=== PATIENT | female | born 1940 | race Caucasian/White ===

== ENCOUNTER 2019-03-10 06:00 | Outpatient (RCR) | payer MEDICARE, OTHER, SELFPAY | END 2019-04-09 00:01 | LOC: SPT 06:00 | PROVIDERS: Family Provider Physician Assistant; Visit Provider Physician Assistant | DX: M54.2 Cervicalgia (principal) | CPT/HCPCS: 97110 ×3 ==

== ENCOUNTER 2019-04-10 06:00 | Outpatient (RCR) | payer MEDICARE, OTHER, SELFPAY | END 2019-05-10 23:59 | disposition home or self-care (01) | LOC: SPT 06:00 | PROVIDERS: Family Provider Physician Assistant; PCP Physician Assistant; Visit Provider Physician Assistant | DX: M54.2 Cervicalgia (principal) | CPT/HCPCS: 97164 ==

== ENCOUNTER 2019-08-20 16:59 | Emergency (ER) | payer MEDICARE, OTHER, SELFPAY ==
[2019-08-20] VITALS (21 sets, daily range): BP systolic 104–145; BP diastolic 64–87; PULSE 75–104; RESP 16–18; TEMP 36.9; O2SAT 95–99; BMI 24.1
--- NOTE | 2019-08-20 17:34 | W.ED.DIZZY ---
Documented by User: Roger Queen DO 08/21/19 06:04 HPI - Dizziness General: Chief Complaint: Dizziness Stated Complaint: DIZZINESS, SWEATS, FAINTING Time Seen by Provider: 08/20/19 17:15 History of Present Illness: HPI Narrative: 78-year-old female comes in complaining of dizziness weakness nausea for the last week. She is had a mild cough as well. She has had fever sweats and chills although the fever has been subjective. This morning she had a near syncopal episode while walking to the bathroom. She denies any chest pain with any of these episodes. Yesterday she went to her primary care doctor's office she was found to have a cystitis and started on an antibiotic. In addition to that she was swabbed for COVID-19 that test is still pending at this time. She denies any vomiting or diarrhea she denies any abdominal pain. She denies any lateralizing weakness difficulty with vision speech or swallowing. Associated symptoms: Reports chills, malaise and nausea; Denies chest pain, headache(s), nasal congestion, palpitations, syncope or vomiting Associated neuro symptoms: Deny confusion, dysphagia or numbness in extremities Review of Systems Const: Reports: fever(s), chills, fatigue and malaise; Denies: body aches or night sweats Eyes: Denies: change in vision or blurry vision ENMT: Denies: throat pain, oral sores, dental pain, nasal discharge or nasal congestion Card: Denies: chest pain, palpitations, irregular heart rhythm, edema, syncope, dyspnea on exertion, orthopnea or leg pain with exertion Resp: Reports: dyspnea and non-productive cough; Denies: productive cough or wheezing GI: Reports: nausea; Denies: abdominal pain, vomiting, hematemesis, coffee ground emesis, dysphagia, heartburn, diarrhea, constipation, GI cramping, hematochezia or melena : Denies: flank pain, dysuria, urinary frequency, urinary urgency, urinary incontinence or hematuria Musc: Denies: neck pain, back pain, extremity pain, extremity swelling, joint pain or joint swelling Skin/Breast: Denies: rash, pruritus or erythema Neuro: Denies: headache(s), numbness in extremities, weakness in extremities, sensory changes, lack of coordination, difficulty walking, frequent falls, dizziness, vertigo or confusion Psych: Denies: anxiety, depression, loss of interest, visual hallucinations, auditory hallucinations, suicidal ideation or homicidal ideation Endo: Denies: polyuria, polydipsia, tired all the time or cold intolerance Carlos/Lymph: Denies: easy bruising, easy bleeding, petechiae, enlarged lymph nodes or tender lymph nodes PFSH ED PFSH: Medical History Qriyn-2-ylxbdnlkqji deficiency Chronic GERD Cystocele, midline Patient with third-degree cystocele with Valsalva. Using a size 6 ring with support pessary with knob DDD (degenerative disc disease) Fibromyalgia syndrome Osteoarthritis Peripheral neuropathy Pessary maintenance Uterovaginal prolapse, incomplete Uterus comes to the opening of the vaginal introitus with Valsalva Surgical History S/P breast augmentation (~1991) S/P cholecystectomy (~2014) S/P mastectomy, bilateral 1981- Cystic breasts-- benign S/P total knee replacement (~07/04/17) S/P tubal ligation (~1978) Family History Family/Other Colon cancer nephew Breast cancer maternal aunt Brother Lung cancer Hyperlipidemia Mother Lung cancer Family/Other Uterine cancer maternal aunt Sister Hyperlipidemia Family/Other No problems noted. Social History Smoking and tobacco status: never smoked Alcohol intake: never Additional social history: well balanced diet Physical Exam Const: COMMON NORMALS: no acute distress GENERAL APPEARANCE: cooperative and comfortable ORIENTATION/CONSCIOUSNESS: Yes awake, Yes oriented to person, Yes oriented to place and Yes oriented to time HENMT: COMMON NORMALS: normocephalic, atraumatic, hearing grossly normal bilaterally, external ears normal, EAC's normal, TM's normal bilaterally, Normal nasal mucous membranes and turbinates present, moist oral mucous membranes and oropharynx normal HEAD & SCALP: normocephalic and atraumatic NOSE: Normal nasal mucous membranes and turbinates present EXTERNAL EAR: Yes external ears normal EXTERNAL AUDITORY CANAL: EAC's normal TYMPANIC MEMBRANE: TM's normal bilaterally Eye: COMMON NORMALS: Equal, round and reactive pupils present, EOMs intact bilaterally, conjunctivae normal and no scleral icterus CONJUNCTIVA: Yes conjunctivae normal PUPIL: Yes Equal, round and reactive pupils present Neck/C-Spine: COMMON NORMALS: full ROM, no lymphadenopathy, supple and no JVD Lymph: LYMPHATIC: no lymphadenopathy noted and no lymphedema noted Resp: COMMON NORMALS: normal respiratory effort, No retractions, No use of accessory muscles and clear to auscultation bilaterally AUSCULTATION: clear to auscultation bilaterally Cardio: COMMON NORMALS: no JVD, regular rate, regular rhythm and No murmurs present (Cardio) RATE: regular rate RHYTHM: regular rhythm GI: COMMON NORMALS: Soft to palpation and No hepatosplenomegaly present AUSCULTATION: Yes normoactive bowel sounds PALPATION: Yes Soft to palpation, No Tenderness to palpation present (GI), No Guarding due to palpation present (GI) and Yes No hepatosplenomegaly present Extremity: COMMON NORMALS: normal to inspection, capillary refill normal, no clubbing, cyanosis or edema, no calf tenderness and no pedal edema Neuro: SENSORIUM/ORIENTATION: Yes oriented to person, Yes oriented to place and Yes oriented to time Skin: COMMON NORMALS: no rashes or lesions noted GENERAL SKIN EXAM: no rashes or lesions noted Course Vital Signs: Vital signs: Vital Signs Temperature 98.4 F 08/20/19 17:09 Pulse Rate 76 08/20/19 20:50 Respiratory Rate 16 08/20/19 20:50 Blood Pressure 132/87 08/20/19 20:50 Pulse Oximetry 96 08/20/19 20:50 MDM - Dizziness MDM Narrative: Medical decision making narrative: Care turned over to Dr. Godinez at change of shift. See his notes for assessment and final disposition Lab Data: Labs: Lab Results 08/20/19 08/20/19 Range/Units 17:20 17:20 WBC 7.6 (4.0-10.0) 10^3/ uL RBC 5.32 H (4.1-5.3) 10^6/u L Hgb 15.1 (11.5-15.3) g/dL Hct 47.0 (37.0-47.0) % MCV 88.3 (81-99) fL MCH 28.4 (28.0-34.0) pg MCHC 32.1 (30.0-36.0) g/dL RDW 13.3 (12.1-15.1) % Plt Count 340 (130-400) 10^3/c mm MPV 9.7 (7.4-10.4) fL Neut % (Auto) 71.6 % Lymph % (Auto) 18.2 % [place] % (Auto) 4.7 % Eos % (Auto) 5.1 % Baso % (Auto) 0.3 % Neut # (Auto) 5.4 (1.8-7.7) 10^3/u L Lymph # (Auto) 1.4 (0.8-4.8) 10^3/u L [place] # (Auto) 0.4 (0.2-0.9) 10^3/u L Eos # (Auto) 0.4 (0.0-0.8) 10^3/u L Baso # (Auto) 0.0 (0.0-0.1) 10^3/u L Nucleated RBC % (a uto) 0 % Nucleated RBCs # 0.0 /100WBC Sodium 139 (136-145) mmol/L Potassium 3.8 (3.5-5.1) mmol/L Chloride 100 (98-107) mmol/L Carbon Dioxide 26 (22-29) mmol/L Anion Gap 16.8 (5-19) BUN 16 (8-23) mg/dL Creatinine 0.9 (0.5-0.9) mg/dL Glucose 114 (65-115) mg/dL Calculated Osmolal ity 285 (285-295) mOsm/k g Calcium 9.4 (8.5-10.5) mg/dL Total Bilirubin 1.0 (0.15-1.2) mg/dL AST 16 (0-32) U/L ALT 10 (0-33) U/L Alkaline Phosphata se 69 (35-105) IU/L Total Protein 6.6 (6.6-8.7) g/dL Albumin 4.2 (3.5-5.2) g/dL Globulin 2.4 (1.3-4.6) g/dL Lipase 35 (13-60) U/L Discharge Plan Discharge Patient Disposition: Home, Self-Care Clinical Impression: Generalized weakness, Acute upper respiratory infection, Cystitis Condition: Stable Prescriptions: New Keflex 500 mg capsule 500 mg PO Q6H 7 Days Qty: 28 RF: 0 No Action Premarin 0.625 mg/gram cream 0.3125 mg VAGINAL .twice weekly Qty: 30 RF: 6 Trimo-Gonzalez Jelly 0.025-0.01 % gel VAGINAL PRNRF: 0 gabapentin PO BID RF: 0 albuterol sulfate [ProAir HFA] 90 mcg/actuation HFA aerosol inhaler 2 puff INHALATION Q6H PRNRF: 0 cetirizine 10 mg capsule PO DAILY RF: 0 acetaminophen [Tylenol] 325 mg tablet 325 mg PO Q6H PRNRF: 0 multivitamin Tablet 1 tab PO QDAY RF: 0 duloxetine [Cymbalta] 60 mg capsule,delayed release(DR/EC) 60 mg PO QDAY RF: 0 Discharge Orders: Discharge Order (Routine); Ordered 08/20/19 Ordered By: Pedro Godinez Referrals: Jaclyn Holloway PA [Primary Care Provider] - 1-3 days Discharge Diet: Advance as tolerated Discharge Activity: Resume usual activity Patient Instructions: Upper Respiratory Infection (ED), Weakness (ED) Interventions: ED Discharge Assessment Last Done: 08/20/19 20:50 ED Charges Last Done: 08/20/19 20:50 Discharge Date/Time: 08/20/19 20:43 Coding Level of Care Code ED Dental Ceramist for Chg Fwd Documented by User: Pedro Godinez MD 08/20/19 20:48 HPI - Dizziness General: Chief Complaint: Dizziness Stated Complaint: DIZZINESS, SWEATS, FAINTING Time Seen by Provider: 08/20/19 17:15 PFSH ED PFSH: Medical History Jprls-0-hiykfadnemc deficiency Chronic GERD Cystocele, midline Patient with third-degree cystocele with Valsalva. Using a size 6 ring with support pessary with knob DDD (degenerative disc disease) Fibromyalgia syndrome Osteoarthritis Peripheral neuropathy Pessary maintenance Uterovaginal prolapse, incomplete Uterus comes to the opening of the vaginal introitus with Valsalva Surgical History S/P breast augmentation (~1991) S/P cholecystectomy (~2014) S/P mastectomy, bilateral 1981- Cystic breasts-- benign S/P total knee replacement (~07/04/17) S/P tubal ligation (~1978) Family History Family/Other Colon cancer nephew Breast cancer maternal aunt Brother Lung cancer Hyperlipidemia Mother Lung cancer Family/Other Uterine cancer maternal aunt Sister Hyperlipidemia Family/Other No problems noted. Social History Smoking and tobacco status: never smoked Alcohol intake: never Additional social history: well balanced diet Course Vital Signs: Vital signs: Vital Signs Temperature 98.4 F 08/20/19 17:09 Pulse Rate 76 08/20/19 20:50 Respiratory Rate 16 08/20/19 20:50 Blood Pressure 132/87 08/20/19 20:50 Pulse Oximetry 96 08/20/19 20:50 MDM - Dizziness MDM Narrative: Medical decision making narrative: Patient presents here with generalized weakness along with cough and congestion. Patient was on antibiotics states she has had allergic reactions we will switch it to Keflex. Patient is well-appearing here and vitals including orthostatics are normal. Patient is stable for discharge and return if worsening. Lab Data: Labs: Lab Results 08/20/19 08/20/19 Range/Units 17:20 17:20 WBC 7.6 (4.0-10.0) 10^3/ uL RBC 5.32 H (4.1-5.3) 10^6/u L Hgb 15.1 (11.5-15.3) g/dL Hct 47.0 (37.0-47.0) % MCV 88.3 (81-99) fL MCH 28.4 (28.0-34.0) pg MCHC 32.1 (30.0-36.0) g/dL RDW 13.3 (12.1-15.1) % Plt Count 340 (130-400) 10^3/c mm MPV 9.7 (7.4-10.4) fL Neut % (Auto) 71.6 % Lymph % (Auto) 18.2 % [place] % (Auto) 4.7 % Eos % (Auto) 5.1 % Baso % (Auto) 0.3 % Neut # (Auto) 5.4 (1.8-7.7) 10^3/u L Lymph # (Auto) 1.4 (0.8-4.8) 10^3/u L [place] # (Auto) 0.4 (0.2-0.9) 10^3/u L Eos # (Auto) 0.4 (0.0-0.8) 10^3/u L Baso # (Auto) 0.0 (0.0-0.1) 10^3/u L Nucleated RBC % (a uto) 0 % Nucleated RBCs # 0.0 /100WBC Sodium 139 (136-145) mmol/L Potassium 3.8 (3.5-5.1) mmol/L Chloride 100 (98-107) mmol/L Carbon Dioxide 26 (22-29) mmol/L Anion Gap 16.8 (5-19) BUN 16 (8-23) mg/dL Creatinine 0.9 (0.5-0.9) mg/dL Glucose 114 (65-115) mg/dL Calculated Osmolal ity 285 (285-295) mOsm/k g Calcium 9.4 (8.5-10.5) mg/dL Total Bilirubin 1.0 (0.15-1.2) mg/dL AST 16 (0-32) U/L ALT 10 (0-33) U/L Alkaline Phosphata se 69 (35-105) IU/L Total Protein 6.6 (6.6-8.7) g/dL Albumin 4.2 (3.5-5.2) g/dL Globulin 2.4 (1.3-4.6) g/dL Lipase 35 (13-60) U/L Imaging Data^: CXR: Attestation: I personally reviewed and interpreted this imaging study as follows: Radiologist's impression: [address] [address] XRay Report Signed Patient: Elizabeth Anne Unit #: [id number] : 1940 Age/Sex: 78 / F ADM Date: 08/20/19 Loc: ER Room/Bed: Attending Dr: Ordering Provider/Ordering MD: Roger Queen DO Date of Service: 08/20/19 Procedure(s): XR chest 1V portable [id number] Accession Number(s): [id number] Report Number: [id number] PROCEDURE INFORMATION: Exam: XR Chest, 1 View Exam date and time: 08/20/2019 6:10 PM Age: 78 years old Clinical indication: Cough and shortness of breath; Additional info: Dyspnea/cough TECHNIQUE: Imaging protocol: XR of the chest Views: 1 view. COMPARISON: CR Chest 2 views* [id number] 06/30/2017 11:20 AM FINDINGS: Overlying breast implants limit evaluation. Lung volumes are somewhat low. Otherwise no focal pulmonary consolidation is demonstrated on this single frontal image. No significant obscuration of the lateral costophrenic angles is demonstrated. No significant vascular congestion is demonstrated. Visualized cardiac silhouette size appears within normal limits. XR/XR chest 1V portable [id number] IMPRESSION: No definite acute pulmonary process is demonstrated. EKG Data^: EKG 1: Attestation: I personally reviewed and interpreted this EKG as follows: EKG interpretation date: 08/20/19 EKG interpretation time: 19:34 Interpretation: nsr hr [address] or t wave abnormalities qrs 87 qtc 413 Discharge Plan Discharge Patient Disposition: Home, Self-Care Clinical Impression: Generalized weakness, Acute upper respiratory infection, Cystitis Condition: Stable Prescriptions: New Keflex 500 mg capsule 500 mg PO Q6H 7 Days Qty: 28 RF: 0 No Action Premarin 0.625 mg/gram cream 0.3125 mg VAGINAL .twice weekly Qty: 30 RF: 6 Trimo-Gonzalez Jelly 0.025-0.01 % gel VAGINAL PRNRF: 0 gabapentin PO BID RF: 0 albuterol sulfate [ProAir HFA] 90 mcg/actuation HFA aerosol inhaler 2 puff INHALATION Q6H PRNRF: 0 cetirizine 10 mg capsule PO DAILY RF: 0 acetaminophen [Tylenol] 325 mg tablet 325 mg PO Q6H PRNRF: 0 multivitamin Tablet 1 tab PO QDAY RF: 0 duloxetine [Cymbalta] 60 mg capsule,delayed release(DR/EC) 60 mg PO QDAY RF: 0 Discharge Orders: Discharge Order (Routine); Ordered 08/20/19 Ordered By: Pedro Godinez Referrals: Jaclyn Holloway PA [Primary Care Provider] - 1-3 days Discharge Diet: Advance as tolerated Discharge Activity: Resume usual activity Patient Instructions: Upper Respiratory Infection (ED), Weakness (ED) Interventions: ED Discharge Assessment Last Done: 08/20/19 20:50 ED Charges Last Done: 08/20/19 20:50 Discharge Date/Time: 08/20/19 20:43 Coding Level of Care Code ED Dental Ceramist for Edwin Arevalo
--- NOTE | 2019-08-20 17:45 | ECG_ITS ---
Measurements Intervals [place] Rate: 102 P: 60 TN: 158 QRS: -37 QRSD: 85 T: 71 QT: 343 QTc: 449 SINUS TACHYCARDIA WITH OCCASIONAL VENTRICULAR PREMATURE COMPLEXES LEFT AXIS DEVIATION [QRS AXIS < -30] POSSIBLE RIGHT VENTRICULAR CONDUCTION DELAY [RSR (QR) IN V1/V2] NONSPECIFIC T-WAVE ABNORMALITY No previous ECG available for comparison Electronically Signed On 08-20-2019 19:46:51 CDT by Sunny Almonte M.D. [email or web address]
--- NOTE | 2019-08-20 17:45 | XRR_ITS ---
PROCEDURE INFORMATION: Exam: XR Chest, 1 View Exam date and time: 08/20/2019 6:10 PM Age: 78 years old Clinical indication: Cough and shortness of breath; Additional info: Dyspnea/cough TECHNIQUE: Imaging protocol: XR of the chest Views: 1 view. COMPARISON: CR Chest 2 views* [id number] 06/30/2017 11:20 AM FINDINGS: Overlying breast implants limit evaluation. Lung volumes are somewhat low. Otherwise no focal pulmonary consolidation is demonstrated on this single frontal image. No significant obscuration of the lateral costophrenic angles is demonstrated. No significant vascular congestion is demonstrated. Visualized cardiac silhouette size appears within normal limits. XR/XR chest 1V portable [id number] IMPRESSION: No definite acute pulmonary process is demonstrated.
[2019-08-20] MEDS: sodium chloride 0.9% 1,000 ML 999 ML IV (18:12)
[2019-08-20 18:40] LABS: Basophils % 0.3 %; Eosinophils # 0.4 10^3/uL (0.0-0.8); Eosinophils % 5.1 %; Hemoglobin 15.1 g/dL (11.5-15.3); Lymphocytes # 1.4 10^3/uL (0.8-4.8); Lymphocytes % 18.2 %; Mean Corpuscular HGB Conc 32.1 g/dL (30.0-36.0); Mean Corpuscular Hemoglobin 28.4 pg (28.0-34.0); Mean Corpuscular Volume 88.3 fL (81-99); Mean Platelet Volume 9.7 fL (7.4-10.4); Monocytes # 0.4 10^3/uL (0.2-0.9); Monocytes % 4.7 %; Neutrophils # 5.4 10^3/uL (1.8-7.7); Neutrophils % 71.6 %; Nucleated Red Blood Cells % 0 %; Platelet Count 340 10^3/cmm (130-400); Red Blood Count 5.32 10^6/uL (4.1-5.3); Red Cell Distribution Width 13.3 % (12.1-15.1); White Blood Count 7.6 10^3/uL (4.0-10.0)
[2019-08-20 19:06] LABS: Alanine Aminotransferase 10 U/L (0-33); Albumin Level 4.2 g/dL (3.5-5.2); Alkaline Phosphatase 69 IU/L (35-105); Anion Gap 16.8 (5-19); Aspartate Amino Transferase 16 U/L (0-32); Blood Urea Nitrogen 16 mg/dL (8-23); Calcium 9.4 mg/dL (8.5-10.5); Carbon Dioxide 26 mmol/L (22-29); Chloride 100 mmol/L (98-107); Globulin 2.4 g/dL (1.3-4.6); Glucose 114 mg/dL (65-115); Lipase 35 U/L (13-60); Osmolality Calculated 285 mOsm/kg (285-295); Potassium 3.8 mmol/L (3.5-5.1); Sodium 139 mmol/L (136-145); Total Protein 6.6 g/dL (6.6-8.7)
== END 2019-08-20 20:43 | disposition home or self-care (01) ==
PROVIDERS: Family Medicine; Emergency Provider Emergency Medicine; PCP Physician Assistant
DX: N30.90 Cystitis, unspecified without hematuria (principal); J06.9 Acute upper respiratory infection, unspecified; R53.1 Weakness
CPT/HCPCS: 12345; 71045; 80053; 83690; 85025; 93005; 96360; 99284; J7030

== ENCOUNTER 2019-09-26 15:05 | Outpatient (CLI) | payer MEDICARE, OTHER, SELFPAY ==
--- NOTE | 2019-09-26 15:13 | MM_ITS ---
WS: [id number] BILATERAL DIGITAL SCREENING MAMMOGRAM WITH CAD CLINICAL INFORMATION: SCREENING HISTORY: Screening mammogram. No current complaints. COMPARISON: March 09, 2018 TECHNIQUE: Bilateral CC and MLO views. FINDINGS: Postoperative changes bilateral breast implants. Fatty-replaced breasts bilaterally. Relative paucity of parenchymal breast tissue. Stable coarse impl ants calcifications right greater than left breast. No suspicious focal mass, asymmetry, calcificatio ns, or architectural distortion. No evidence of malignancy. MM/[place] [id number] IMPRESSION: BI-RADS: 2-Benign FOLLOW UP: 1 Year Follow-up Recommend return to annual screening mammography.
--- NOTE | 2019-09-26 15:47 | XR_ITS ---
WS: [id number] SCREENING DEXA SCAN Swivel HISTORY: 79 years old Female with POST MENOPAUSAL COMPARISON: None available. FINDINGS: The L1-L4 bone mineral density measures 0.881 g/cm2. This corresponds to a T score of -2.5 and Z scor e of -0.8. Left femoral neck bone mineral density measures 0.785 g/cm2. This corresponds to T score of -1.8 and Z score of 0.0. Right femoral neck bone mineral density measures 0.828 g/cm2. This corresponds to a T score of -1.4 a nd Z score of 0.3. Mean femoral neck bone mineral density measures 0.807 g/cm2. This corresponds to a T score of -1.6 an d Z score of 0.2. XR/XR DEXA axial skeleton* [id number] IMPRESSION: Patient's FRAX calculated 10 year probability for major osteoporotic fracture i s 12.7% and osteoporotic hip fracture is 3%. Bone density changes consistent with osteopenia.
== END 2019-09-26 15:06 | disposition home or self-care (01) ==
LOC: RADSHAW 15:11
PROVIDERS: PCP Physician Assistant; Visit Provider Physician Assistant
DX: Z12.31 Encounter for screening mammogram for malignant neoplasm of breast (principal); Z78.0 Asymptomatic menopausal state
CPT/HCPCS: 77067; 77080

== ENCOUNTER 2019-10-10 08:21 | Outpatient (CLI) | payer MEDICARE, OTHER, SELFPAY ==
--- NOTE | 2019-10-10 08:33 | MR_ITS ---
WS: [id number] MRI HEAD WITH CONTRAST TECHNIQUE: Sagittal T1, T2 axial, T2 axial FLAIR, axial susceptibility weighted imaging, axial diffus ion weighted images, and coronal T2 images were obtained. Pre and post-T1 axial and post T1 coronal i mages. ADC and FSPGR images. CLINICAL INFORMATION: MILD COGNITIVE IMPAIRMENT COMPARISON: January 14, 2015 FINDINGS: No evidence of restricted diffusion to suggest acute ischemia. Ventricular system and basal cisterns are patent. Moderate small vessel changes. Moderate parenchymal volume loss. Normal vascular flow voi ds at the skull base. No extra-axial fluid collections. No evidence of mass or mass effect. Paranasal sinuses and mastoid air cells are well aerated. No hemosiderin on susceptibly weighted images. Temporal lobes and hippocampal formations are symmetric and normal in appearance. Normal optic chiasm and pituitary infundibulum. No abnormal intracranial enhancement. Meckel's cave and cavernous sinuse s are normal in appearance. Normal visualized dural venous sinuses. Small enhancing lesion in the lef t facial infraorbital soft tissues along the sphenoid wing measuring 6 mm may represent a small venou s varix or hemangioma. This is likely benign and unchanged since 2014 MR/MR head wo/w con [id number] IMPRESSION: 1. No evidence of restricted diffusion to suggest acute ischemia. 2. Moderate small vessel changes with mild to moderate parenchymal volume loss . Small vessel changes slightly progressed since 2014. 3. No abnormal intracranial enhancement. 4. Paranasal sinuses and mastoid air cells are well aerated. 5. Small enhancing left sphenoid wing lesion measuring 6 mm unchanged since 15 likely benign. This may represent incidental venous varix or small hemangiom a.
== END 2019-10-10 08:22 | disposition home or self-care (01) ==
LOC: RADSHAW 08:27
PROVIDERS: PCP Physician Assistant; Visit Provider Physician Assistant
DX: G31.84 Mild cognitive impairment of uncertain or unknown etiology (principal); G93.89 Other specified disorders of brain
CPT/HCPCS: 70553; A9579

== ENCOUNTER → 2019-11-20 14:03 | Outpatient (BNVA) | payer MEDICARE, OTHER, SELFPAY | PROVIDERS: PCP Physician Assistant; Referring Provider Otolaryngology; Visit Provider Nurse Practitioner | DX: K14.6 Glossodynia (principal) | CPT/HCPCS: 99204 ==

== ENCOUNTER → 2020-05-01 15:20 | Outpatient (BNVA) | payer MEDICARE, SELFPAY | PROVIDERS: PCP Physician Assistant; Visit Provider Nurse Practitioner Women's Health | DX: N81.2 Incomplete uterovaginal prolapse (principal); R30.0 Dysuria; Z46.89 Encounter for fitting and adjustment of other specified devices | CPT/HCPCS: 87086 ==

== ENCOUNTER → 2020-06-08 08:43 | Outpatient (BNVA) | payer MEDICARE, SELFPAY | PROVIDERS: PCP Physician Assistant; Referring Provider Physician Assistant; Visit Provider Specialist | DX: M19.041 Primary osteoarthritis, right hand (principal); M79.641 Pain in right hand | CPT/HCPCS: 73130 ==

== ENCOUNTER → 2020-07-01 11:09 | Outpatient (BNVA) | payer MEDICARE, SELFPAY | PROVIDERS: PCP Physician Assistant; Visit Provider Podiatrist Foot & Ankle Surgery | DX: M72.2 Plantar fascial fibromatosis (principal) | CPT/HCPCS: 77077 ==

== ENCOUNTER 2020-07-07 20:00 | Outpatient (CLI) | payer MEDICARE, SELFPAY | END 2020-07-07 20:01 | disposition home or self-care (01) | LOC: SLEEP 07-08 08:40 | PROVIDERS: PCP Physician Assistant; Visit Provider Student in an Organized Health Care Education/Training Program | DX: G47.10 Hypersomnia, unspecified (principal); R53.83 Other fatigue | CPT/HCPCS: 95810 ==

== ENCOUNTER → 2021-01-06 11:34 | Outpatient (BNVA) | payer MEDICARE, OTHER, SELFPAY | PROVIDERS: PCP Physician Assistant; Visit Provider Specialist | DX: M25.562 Pain in left knee (principal); Z96.652 Presence of left artificial knee joint | CPT/HCPCS: 73560; 73565 ==

== ENCOUNTER → 2021-09-28 09:52 | Outpatient (BNVA) | payer MEDICARE, OTHER, SELFPAY | PROVIDERS: PCP Physician Assistant; Visit Provider Obstetrics & Gynecology | DX: R30.0 Dysuria (principal); Z46.89 Encounter for fitting and adjustment of other specified devices; N81.2 Incomplete uterovaginal prolapse | CPT/HCPCS: 81000 ==

== ENCOUNTER 2021-11-16 12:10 | Outpatient (CLI) | payer MEDICARE, OTHER, SELFPAY ==
--- NOTE | 2021-11-16 12:22 | MR_ITS ---
WS: [id number] MRI CERVICAL SPINE NONCONTRAST TECHNIQUE: Sagittal T1, T2 and STIR imaging. Axial T2, gradient, and fiesta imaging. CLINICAL INFORMATION: NECK PAIN COMPARISON: MRI 3 FINDINGS: Straightening of normal cervical lordosis. Mild disc bulging C3-C4, C4-C5, C5-C6, cord signal is norm al. C2-C3: Mild LEFT bony foraminal narrowing. Mild LEFT facet arthropathy. Spinal canal is patent. C3-C4: Mild disc osteophytic ridging. Mild bilateral bony foraminal narrowing. Mild facet arthropathy . Spinal canal is patent. C4-C5: Disc osteophyte complex with endplate ridging. Moderate RIGHT and mild LEFT bony foraminal lynn rowing. Mild facet arthropathy. Mild central canal stenosis. C5-C6: Disc osteophyte complex with endplate ridging. Mild central canal stenosis. Moderate LEFT and mild RIGHT bony foraminal narrowing. Mild facet arthropathy. C6-C7: Disc osteophytic ridging. Moderate LEFT and mild RIGHT bony foraminal narrowing. Spinal canal is patent. C7-T1: Mild LEFT and no significant RIGHT foraminal narrowing. Shallow central disc bulging. Spinal c anal is patent. Tiny protrusions in the upper thoracic spine at T1-T2 and T2-T3. Visualized brain stem structures: Normal. Prevertebral soft tissues: Normal. MR/MR cervical spin wo con* [id number] IMPRESSION: Overall no significant changes compared to 2017. 1. Straightening of the normal cervical lordosis. 2. Mild central canal stenosis C3-C4 C4-C5 and C5-C6 unchanged from previous. 3. Moderate bony foraminal narrowing RIGHT C4-C5, LEFT C5-C6, and LEFT C6-C7.
== END 2021-11-16 12:11 | disposition home or self-care (01) ==
PROVIDERS: PCP Physician Assistant; Visit Provider Nurse Practitioner Family
DX: M48.02 Spinal stenosis, cervical region (principal)
CPT/HCPCS: 72141

== ENCOUNTER 2021-12-09 11:18 | Outpatient (CLI) | payer MEDICARE, OTHER, SELFPAY ==
--- NOTE | 2021-12-09 | XR_ITS ---
WS: [id number] Exam: XR cervical spine min 6V [id number] Date/Time of Exam: 12/09/2021 11:51 AM Reason For Exam: NECK PAIN No acute fracture or dislocation. Degenerative disc thinning from C3 to C7. Facet DJD at all levels. The odontoid is intact. No significant bony foraminal stenosis is seen. Mild vertebral spurring. No s ignificant. Lack extension or extension instability. Normal paraspinal soft tissues. Mild spondylosis from C5 to C7. XR/XR cervical spine min 6V [id number] IMPRESSION: 1. Moderate degenerative changes. No acute fracture or malalignment. No signifi cant flexion or extension instability.
== END 2021-12-09 11:19 | disposition home or self-care (01) ==
LOC: RAD 11:22
PROVIDERS: PCP Physician Assistant; Visit Provider Nurse Practitioner Family
DX: M54.2 Cervicalgia (principal)
CPT/HCPCS: 72052

== ENCOUNTER 2022-05-30 08:04 | Outpatient (CLI) | payer MEDICARE, OTHER, SELFPAY ==
--- NOTE | 2022-05-30 | ECG_ITS ---
[facility] Test Date: 2022-05-30 Pat Name: Elizabeth Nelson Department: Room: Gender: Female Neurology Nurse: : 1940 Requested By: Jaclyn Elliott Order Number: [id number] Sidney MD: Alonzo Rodriguez M.D. Interpretive Statements NAME OF STUDY: EXERCISE SESTAMIBI STRESS TEST INDICATION: [Chest Pain, ] EXERCISE DATA: The patient was exercised by Woody protocol. Baseline heart rate was 95 beats per minute. Baseline blood pressure was 141/93 millimeters of mercury. Target heart rate was 120 beats per minute. Maximum heart rate achieved was 138 which was 115% of the target heart rate. Maximum blood pressure was 180/86 millimeters of mercury. Total exercise time was 4 minutes 17 seconds. Maximum METs achieved was 7. The reason for ending the test was completion of the protocol. The patient complained of shortness of breath during the stress test, which then resolved at the end of the test. ELECTROCARDIOGRAM: BASELINE: Showed sinus rhythm, left axis deviation, no significant ST-T changes at the baseline noted. [] EXERCISE: At the peak exercise level, [] No significant ST-T changes suggestive of ischemia noted. [] RECOVERY: During the recovery period, heart rate dropped appropriately. No significant ST-T changes in the recovery suggestive of ischemia noted. [] CONCLUSION: 1. Exercise capacity fair 2. Heart rate response was appropriate 3. Blood pressure response was appropriate 4. Symptoms not suggestive of ischemia. 5. Electrocardiogram portion of the stress test was not suggestive of ischemia. 6. Nuclear scan will be documented separately. Electronically Signed On 06-11-2022 19:01:53 DOCUMENT CONTROL SUPERVISOR by Alonzo Rodriguez M.D. [email or web address]
[2022-05-30 08:32] VITALS: BMI 24.2
--- NOTE | 2022-05-30 08:49 | NMCV_ITS ---
NM elsa perf SPECT r/s* [id number] Elizabeth Nelson Age: 81 Gender: F : 1940 Exam Date: 05/30/2022 08:49 Ordering Phys: Jaclyn Holloway Technologist: LIZZY Salgado Exam Location: [facility] Indications: CHEST PAIN STRESS TEST Please see separate stress test report in [facility] for full findings IMAGE PROTOCOL Rest/Stress 1 Exercise Day Radiopharmaceutical Dose (mCi) Administration Site Administered by Rest: Tc-99m 10.7 IV LIZZY Rojas Sestamiedward Stress:Tc-99m 32.3 IV LIZZY Rojas Sestamibi Rest: 30-May-2022 60 Discovery 630 Stress: 30-May-2022 15 Discovery 630 Radiopharmaceutical was injected at 87 % maximum heart rate. Images obtained in supine and prone position. SPECT RESULTS Technical Quality: Excellent Raw Data Analysis: Normal Image Corrections: No attenuation or motion correction applied Summed Stress Score: 0 Summed Rest Score: 0 Summed Difference Score: 0 PERFUSION FINDINGS SPECT images demonstrate homogeneous tracer distribution throughout the myocardium. FUNCTIONAL RESULTS (calculated via Gated SPECT) Stress Image LV EF (%): 63 Stress EDV (mL):84 TID: 0.98 Stress ESV (mL):31 FUNCTIONAL FINDINGS: There is normal left ventricular systolic function. IMPRESSIONS 1. Normal myocardial perfusion imaging with no evidence of ischemia 2. LV systolic function is normal Alonzo Rodriguez MD (Electronically Signed) Final Date: 30 May 2022 14:01 S
[2022-05-30 10:20] VITALS: BP 130/83; PULSE 89
== END 2022-05-30 08:05 | disposition home or self-care (01) ==
LOC: CDL 08:09
PROVIDERS: PCP Physician Assistant; Visit Provider Physician Assistant
DX: R07.9 Chest pain, unspecified (principal)
CPT/HCPCS: 36415; 78452; 93017; A9500

== ENCOUNTER 2022-06-02 10:20 | Emergency (ER) | payer MEDICARE, OTHER, SELFPAY ==
[2022-06-02 10:28] VITALS: BP 160/95; PULSE 94; RESP 14; TEMP 36.9; O2SAT 95; BMI 24.2
[2022-06-02 10:31] VITALS: BP 179/86; PULSE 87; RESP 18; O2SAT 96
--- NOTE | 2022-06-02 10:56 | CT_ITS ---
WS: [id number] CT HEAD TECHNIQUE: Noncontrast CT of the head obtained from the skullbase to the vertex. CLINICAL INFORMATION: closed head injury COMPARISON: MRI October 10, 2019 DLP: 1045.[address] scans at [facility] use at least one of these dose optimization techniques: automated e xposure control; mA and/or kV adjustment per patient size (includes targeted exams where dose is matc hed to clinical indication); or iterative reconstruction. FINDINGS: No evidence of intracranial hemorrhage or mass effect. Ventricular system and basal cisterns are john nt. Mild small vessel changes. Mild parenchymal volume loss. Small chronic lacunar infarct LEFT basal ganglia Soft tissue edema dorsal scalp. No visualized occipital calvarial fractures. Paranasal sinuses and ma stoid air cells are well aerated. Vascular calcification. CT/CT head wo con* [id number] IMPRESSION: 1. No evidence of intracranial hemorrhage or mass effect. 2. Mild small vessel changes. Mild parenchymal volume loss. Small chronic lacu lynn infarct LEFT basal ganglia 3. Dorsal occipital soft tissue edema. No visualized fractures. 4. No acute intracranial findings.
--- NOTE | 2022-06-02 10:56 | PC.NURSE ---
PT ARRIVES TO THE ED STATING SHE HAD A FALL LAST NIGHT. PT STATES SHE WENT OUT ON A DATE AND HAD A FEW DRINKS. PT STATES SHE FELL OUT OF THE RECLINER SHE WAS SITTING IN AND HIT THE BACK OF HER HEAD ON A SMALL WOODEN TABLE. THERE IS A RAISED ARE ON HEAD IN GENERAL LOCATION OF IMPACT. PT STATES SHE BECAME NAUSEAS THIS MORNING AND IS STARTING TO GET A HEADACHE.
--- NOTE | 2022-06-02 11:15 | PC.PHAR ---
pt states she takes care of her own medications-pt states she takes the medications entered none of the medications pull up on ext med history-
--- NOTE | 2022-06-02 11:21 | ED_ITS ---
HPI - Fall General: Chief Complaint: Fall Stated Complaint: Fall, dizziness, headpain Time Seen by Provider: 06/02/22 10:45 History of Present Illness: Patient is in today after a fall last night. Patient reports that she was on a first date and decided to have a couple drinks. She reports that she fell backwards out of her chair at the dinner table hitting the back left side of her head on another chair. She denies any loss of consciousness she denies being on any blood thinning medications. She reports that she was a little bit nauseated this morning when she woke up and she has had a progressively worsening headache throughout the day today. She reports her head pain approximately 2-3 on a 0-to-10 scale. She reports that she does have a big knot on the back of her head. She reports that she has had some floaters in her vision today; however, she has had floaters in her vision previously. She denies pain anywhere else. She denies neck pain. Associated symptoms-after fall: Reports headache(s); Denies abdominal pain, chest pain, lightheadedness or neck pain Review of Systems Const: Denies: fever(s), chills or body aches Eyes: Denies: change in vision or blurry vision ENMT: Denies: throat pain Card: Denies: chest pain, palpitations, irregular heart rhythm, lightheadedness or syncope Resp: Denies: dyspnea, productive cough or non-productive cough GI: Denies: abdominal pain, nausea or vomiting : Denies: flank pain, difficulty voiding, dysuria, urinary frequency, urinary urgency or urinary hesitancy Musc: Denies: neck pain or back pain Neuro: Reports: headache(s); Denies: numbness in extremities, weakness in extremities, sensory changes, lack of coordination, dizziness or Slurred speech present PFS ED PFSH: Medical History Pkpzv-[id number] deficiency Chronic GERD Cystocele, midline Patient with third-degree cystocele with Valsalva. 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 Denies family history of Stroke Physical Exam Const: COMMON NORMALS: no acute distress, patient oriented x3 and alert GENERAL APPEARANCE: cooperative ORIENTATION/CONSCIOUSNESS: Yes awake, Yes oriented to person, Yes oriented to place and Yes oriented to time HENMT: HEAD & SCALP: hematoma (Left parietal); no palpable skull fracture Eye: COMMON NORMALS: Equal, round and reactive pupils present, EOMs intact bilaterally and conjunctivae normal GENERAL EYE: appearance normal, both eyes and all related structures ALIGNMENT: Yes alignment normal CONJUNCTIVA: Yes conjunctivae normal SCLERA: sclerae normal PUPIL: Yes Equal, round and reactive pupils present Neck/C-Spine: COMMON NORMALS: full ROM OTHER: No vertebral point tenderness noted to the cervical spine Resp: COMMON NORMALS: normal respiratory effort, No retractions, No use of accessory muscles and clear to auscultation bilaterally EFFORT & INSPECTION: Yes symmetric chest movement AUSCULTATION: clear to auscultation bilaterally Cardio: COMMON NORMALS: regular rate, regular rhythm, S1 normal heart sound present and S2 normal heart sound present RATE: regular rate RHYTHM: regular rhythm HEART SOUNDS: S1 normal heart sound present and S2 normal heart sound present GI: COMMON NORMALS: Normal to inspection, nondistended, normoactive bowel sounds present, Soft to palpation, non-tender, No hepatosplenomegaly present, no masses and no bruits INSPECTION: Yes normal to inspection PALPATION: Yes Soft to palpation and Yes No hepatosplenomegaly present : COMMON NORMALS: Yes no CVA tenderness BLADDER/KIDNEY EXAM: Yes no CVA tenderness Back/Pelvis: COMMON NORMALS: no CVA tenderness Neuro: COMMON NORMALS: patient oriented x3 SENSORIUM/ORIENTATION: Yes alert, Yes oriented to person, Yes oriented to place and Yes oriented to time Psych: COMMON NORMALS: cooperative Course Vital Signs: Vital signs: Vital Signs Temperature 98.5 F 06/02/22 10:28 Pulse Rate 79 06/02/22 11:31 Respiratory Rate 16 06/02/22 13:50 Blood Pressure 137/73 06/02/22 13:50 Pulse Oximetry 97 06/02/22 11:31 Oxygen Delivery Me thod 06/02/22 10:28 MDM - Fall Medical Decision Making Patient is then after a fall and hitting her head last night. This is a 81-year-old female not on any blood thinning medications. She did have a couple drinks of alcohol last night which she thinks got her off balance to fall out of her chair at dinner. She was having some nausea this morning progressively worsening headache. She does describe having an episode of floaters in her vision but she has had this before. CT head did not show any evidence of intracranial hemorrhage or mass effect there is note of a old left basal ganglia infarct. I discussed the results of the CT with patient and her daughter. Patient is hungry but is still been a little bit nauseated this morning so she had not eaten. She feels like she is less nauseous now and would like to try a snack. Patient was able to hold down p.o. crackers and Sprite. Discharge patient to home in stable condition. Follow-up with primary care provider as needed. Return to ER for new or worsening symptoms Lab Data Radiology Impressions Head CT 06/02/22 10:56 IMPRESSION: 1. No evidence of intracranial hemorrhage or mass effect. 2. Mild small vessel changes. Mild parenchymal volume loss. Small chronic lacunar infarct LEFT basal ganglia 3. Dorsal occipital soft tissue edema. No visualized fractures. 4. No acute intracranial findings. Discharge Plan Discharge Patient Disposition: Home Clinical Impression: Concussion without loss of consciousness Condition: Stable Prescriptions: No Action levothyroxine 25 mcg tablet 25 mcg PO QAM duloxetine [Cymbalta] 60 mg capsule,delayed release(DR/EC) 60 mg PO QAM estradiol [Estrace] 0.01 % (0.1 mg/gram) cream See Rx Instructions VAGINAL .three times weekly Qty: 42.5 3RF Rx Instructions: 1 gram vaginal .three times weekly; Celebrex 200 mg Capsule 200 mg PO DAILY PRN (Reason: Pain) Zyrtec 10 mg Tablet 10 mg PO DAILY PRN (Reason: Allergy Symptoms) milk thistle 500 mg Capsule 500 mg PO .THREE TIMES A WEEK Singulair 10 mg Tablet 10 mg PO DAILY Flonase 50 mcg/actuation [place],Suspension 1 spray INTRANASAL DAILY PRN (Reason: Allergy Symptoms) Rx Instructions: administer into each nostril Crestor 5 mg Tablet 5 mg PO .THREE TIMES A WEEK Prilosec OTC 20 mg Tablet,Delayed Release (Dr/Ec) 20 mg PO DAILY PRN (Reason: Heartburn) Calcium 600 + D(3) 600 mg-10 mcg (400 unit) Tablet 1 tab PO DAILY magnesium oxide 400 mg magnesium Tablet 400 mg PO DAILY Beet Root Powder See Rx Instructions .ROUTE .COMPLEX Rx Instructions: takes as needed Cayenne Pepper Capsule 225 mg PO .TWICE A WEEK Discharge Orders: Discharge ED (Routine); Ordered 06/02/22 Ordered By: Elena Ray Referrals: Jaclyn Holloway PA [Primary Care Provider] - Discharge Diet: Usual diet Discharge Activity: Increase activity as tolerated Patient Instructions: Concussion (ED) Activity Restrictions/Additional Instructions: Your CT scan today did not show any evidence of fracture or bleed as a result of your fall last night. It does show the old infarct that you had previously been told about. I recommend making sure that you are staying well-hydrated. Using Tylenol as needed for pain you can also use Celebrex that you have at home as needed as previously directed. Follow-up with primary care provider as needed. Return to the ER for any new or worsening symptoms. Coding Level of Care Code ED Carpet Finishing Supervisor for Edwin Arevalo
[2022-06-02 11:31] VITALS: BP 166/83; PULSE 79; O2SAT 97
[2022-06-02] MEDS: acetaminophen 500 mg Tablet 1000 MG PO (12:51)
[2022-06-02 13:50] VITALS: BP 137/73; RESP 16
== END 2022-06-02 13:40 | disposition home or self-care (01) ==
PROVIDERS: Emergency Provider Nurse Practitioner Family; PCP Physician Assistant
DX: S06.0X0A Concussion without loss of consciousness, initial encounter (principal); W07.XXXA Fall from chair, initial encounter
CPT/HCPCS: 70450; 99284

== ENCOUNTER → 2022-07-26 11:00 | Outpatient (BNVA) | payer MEDICARE, OTHER, SELFPAY | PROVIDERS: PCP Physician Assistant; Visit Provider Nurse Practitioner Women's Health | DX: N90.89 Other specified noninflammatory disorders of vulva and perineum (principal) | CPT/HCPCS: 86695; 86696 ==

== ENCOUNTER 2022-11-08 13:42 | Outpatient (CLI) | payer MEDICARE, OTHER, SELFPAY ==
--- NOTE | 2022-11-08 | XR_ITS ---
WS: [id number] SCREENING DEXA SCAN Results Scorecard CLINICAL INFORMATION: POSTMENOPAUSAL COMPARISON: September 26, 2019 FINDINGS: The L1-L4 bone mineral density measures 0.917 g/cm2. This corresponds to a T score score of -2.2 and Z score of -0.5. Left femoral neck bone mineral density measures 0.798 g/cm2. This corresponds to a T score of -1.7 an d Z score of 0.3. Right femoral neck bone mineral density measures 0.800 g/cm2. This corresponds to a T score -1.7of an d Z score of 0.3. Mean femoral neck bone mineral density measures 0.799 g/cm2. This corresponds to a T score of -1.7 an d Z score of 0.3. XR/XR DEXA axial skeleton* [id number] IMPRESSION: Osteopenia lumbar spine. Osteopenia femoral necks. Patient's FRAX calculated 10 year probability for major osteoporotic fracture i s 20.0 % and osteoporotic hip fracture is 6.1%.
== END 2022-11-08 13:43 | disposition home or self-care (01) ==
LOC: RAD 13:46
PROVIDERS: PCP Physician Assistant; Visit Provider Physician Assistant
DX: N95.9 Unspecified menopausal and perimenopausal disorder (principal)
CPT/HCPCS: 77080

== ENCOUNTER 2023-01-20 09:16 | Oncology outpatient (recurring) (ONCR) | payer MEDICARE, OTHER, SELFPAY ==
[2023-01-20] MEDS: denosumab 60 mg SDV SUBCUT (09:31)
[2023-01-20 09:33] VITALS: BP 130/75; PULSE 80; RESP 16; TEMP 36.7; O2SAT 95
== END 2023-02-07 23:59 | disposition home or self-care (01) ==
LOC: ONCMED 09:16
PROVIDERS: PCP Physician Assistant; Visit Provider Physician Assistant
DX: M81.0 Age-related osteoporosis without current pathological fracture (principal)
CPT/HCPCS: 96372; J0897

== ENCOUNTER → 2023-05-17 10:24 | Outpatient (BNVA) | payer MEDICARE, OTHER, SELFPAY | PROVIDERS: PCP Physician Assistant; Visit Provider Internal Medicine Rheumatology | DX: Z79.899 Other long term (current) drug therapy (principal); M19.90 Unspecified osteoarthritis, unspecified site; Z11.59 Encounter for screening for other viral diseases; Z11.1 Encounter for screening for respiratory tuberculosis; Z71.85 Encounter for immunization safety counseling; M19.041 Primary osteoarthritis, right hand; M19.042 Primary osteoarthritis, left hand | CPT/HCPCS: 99204 ==

== ENCOUNTER → 2023-05-17 11:45 | Outpatient (BNVA) | payer OTHER, MEDICARE, SELFPAY | PROVIDERS: PCP Physician Assistant; Visit Provider Internal Medicine Rheumatology | DX: Z79.899 Other long term (current) drug therapy (principal); Z11.59 Encounter for screening for other viral diseases; Z11.1 Encounter for screening for respiratory tuberculosis; Z71.85 Encounter for immunization safety counseling; M19.041 Primary osteoarthritis, right hand; M19.042 Primary osteoarthritis, left hand | CPT/HCPCS: 80076; 82306; 82565; 84439; 84443; 85025; 85651; 86038; 86200; 86431; 86480; 86704; 86803; 87340 ==

== ENCOUNTER → 2023-05-22 09:48 | Outpatient (BNVA) | payer MEDICARE, SELFPAY | PROVIDERS: PCP Physician Assistant; Visit Provider Podiatrist Foot & Ankle Surgery | DX: M21.611 Bunion of right foot; M21.612 Bunion of left foot; M20.41 Other hammer toe(s) (acquired), right foot; M20.42 Other hammer toe(s) (acquired), left foot | CPT/HCPCS: 73630; 99213 ==

== ENCOUNTER 2023-06-19 08:15 | Observation (INO) | payer MEDICARE, OTHER, SELFPAY ==
[2023-06-19] VITALS (13 sets, daily range): BP systolic 87–182; BP diastolic 53–99; PULSE 59–100; RESP 15–18; TEMP 36.6–37.4; O2SAT 94–98; BMI 29.8; BMI 24.5
[2023-06-19] MEDS: sodium chloride 0.9% 1,000 ML 999 ML IV (08:32)
[2023-06-19] MEDS: aspirin 81 mg Chew Tablet 324 MG PO (08:32)
--- NOTE | 2023-06-19 08:35 | W.ED.NAVMDI ---
HPI - Nausea/Vomiting/Diarrhea General: Chief complaint: Nausea/Vomiting/Diarrhea Stated complaint: n/v Time Seen by Provider: 06/19/23 08:21 Source: patient Mode of arrival: EMS History of Present Illness: 82-year-old female presents emergency room with nausea vomiting dizziness began suddenly this morning. She denies any abdominal pain. She has slight dysuria. She reports at least 3 episodes where she got dizzy nauseous had a mildly diaphoretic episode and then it would resolve and then later recur again. She was given Zofran and route. He has not taken any of her morning medications. She denies any chest pain or associated shortness of breath no hematuria hematemesis coffee-ground emesis while she has been very nauseous she has not vomited to this point. MD elicited complaint: nausea and vomiting Onset (ago): minute(s) Associated nausea: Yes Associated abdominal pain: No Associated symtoms: Reports diaphoresis (Transient), dizziness and nausea; Denies altered mental status, anxiety, bloating, change in vision, chest pain, cough, decreased urine output, dysuria, epistaxis, fatigue, fecal incontinence, fevers/chills, headache(s), anorexia, malaise, myalgias, numbness, palpitations, rash, short of breath, syncope, tenesmus, tinnitus, weakness or other Review of Systems Const: Reports: diaphoresis (Transient); Denies: fatigue or malaise Eyes: Denies: change in vision ENMT: Denies: tinnitus or epistaxis Card: Denies: chest pain, palpitations or syncope Resp: Denies: dyspnea GI: Reports: nausea; Denies: bloating or fecal incontinence : Denies: dysuria Musc: Denies: neck pain or back pain Skin/Breast: Denies: rash Neuro: Reports: dizziness; Denies: headache(s) Psych: Denies: anxiety PFSH ED PFSH: Medical History Osteoarthritis of hands, bilateral Immunization counseling High risk medication use Inflammatory arthritis Osteoarthritis Peripheral neuropathy DDD (degenerative disc disease) Chronic GERD Fibromyalgia syndrome [id number] deficiency Pessary maintenance Uterovaginal prolapse, incomplete Uterus comes to the opening of the vaginal introitus with Valsalva Cystocele, midline Patient with third-degree cystocele with Valsalva. 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 Denies family history of Stroke Physical Exam Const: COMMON NORMALS: no acute distress EXAM LIMITATIONS: no altered mental status GENERAL APPEARANCE: cooperative and comfortable ORIENTATION/CONSCIOUSNESS: Yes awake, Yes oriented to person, Yes oriented to place and Yes oriented to time HENMT: COMMON NORMALS: normocephalic, atraumatic and hearing grossly normal bilaterally HEAD & SCALP: normocephalic and atraumatic Resp: COMMON NORMALS: normal respiratory effort, No retractions, No use of accessory muscles and clear to auscultation bilaterally AUSCULTATION: clear to auscultation bilaterally Cardio: COMMON NORMALS: regular rate, regular rhythm and No murmurs present (Cardio) RATE: regular rate RHYTHM: regular rhythm GI: COMMON NORMALS: Soft to palpation and No hepatosplenomegaly present AUSCULTATION: Yes normoactive bowel sounds PALPATION: Yes Soft to palpation, No Tenderness to palpation present (GI), No Guarding due to palpation present (GI) and Yes No hepatosplenomegaly present Extremity: COMMON NORMALS: normal to inspection, capillary refill normal, no clubbing, cyanosis or edema, no calf tenderness and no pedal edema Neuro: SENSORIUM/ORIENTATION: Yes oriented to person, Yes oriented to place and Yes oriented to time Skin: COMMON NORMALS: no rashes or lesions noted GENERAL SKIN EXAM: no rashes or lesions noted Course Vital Signs: Vital signs: Vital Signs Temperature 98.4 F 06/19/23 08:19 Pulse Rate 74 06/19/23 13:30 Respiratory Rate 16 06/19/23 08:19 Blood Pressure 136/69 06/19/23 13:30 Pulse Oximetry 96 06/19/23 13:30 Oxygen Delivery Me thod Room Air 06/19/23 13:30 MDM - Nausea/Vomiting/Diarrhea Medical Decision Making Initial impression her blood pressure markedly elevated we gave her labetalol it did not improve much and gave her hydralazine and degree significantly she got mild transiently hypotensive when we stood her up she had a positive orthostatics it did improve after that her symptoms overall improved as her blood pressure got better. Dizziness persists. Symptoms were present this morning when she got up. I do not think she is a candidate for thrombolysis for a posterior stroke, although posterior stroke may be a consideration. She otherwise has no other significant findings at this time and her dizziness is improved as well as her nausea but it is still present and she is requiring assistance to get to bedside commode. Will admit monitor blood pressure further evaluation. Medical Records I reviewed the patient's medical records. Lab Data I reviewed the patient's lab results. 06/19/23 07:53 06/19/23 07:53 Laboratory Results WBC 6.05 10^3/uL (3.29-11.43) 06/19/23 07:53 RBC 4.85 10^6/uL (3.85-5.65) 06/19/23 07:53 Hgb 14.30 g/dL (11.27-16.99) 06/19/23 07:53 Hct 43.3 % (36-47) 06/19/23 07:53 MCV 89.3 fl (85-98) 06/19/23 07:53 MCH 29.5 pg (27-33) 06/19/23 07:53 MCHC 33.0 g/dL (30-55) 06/19/23 07:53 RDW 13.7 % (12.1-15.1) 06/19/23 07:53 Plt Count 306 10^3/cmm (157-399) 06/19/23 07:53 MPV 9.2 fL (7.4-10.4) 06/19/23 07:53 Neut % (Auto) 36.3 % 06/19/23 07:53 Lymph % (Auto) 50.7 % 06/19/23 07:53 [place] % (Auto) 9.8 % 06/19/23 07:53 Eos % (Auto) 2.3 % 06/19/23 07:53 Baso % (Auto) 0.7 % 06/19/23 07:53 Neut # (Auto) 2.20 10^3/uL (1.8-7.7) 06/19/23 07:53 Lymph # (Auto) 3.1 10^3/uL (0.8-4.8) 06/19/23 07:53 [place] # (Auto) 0.6 10^3/uL (0.2-0.9) 06/19/23 07:53 Eos # (Auto) 0.1 10^3/uL (0.0-0.8) 06/19/23 07:53 Baso # (Auto) 0.0 10^3/uL (0.0-0.1) 06/19/23 07:53 Nucleated RBC % (auto) 0 % 06/19/23 07:53 Nucleated RBCs # 0.0 /100WBC 06/19/23 07:53 Sodium 138 mmol/L (136-145) 06/19/23 07:53 Potassium 3.5 mmol/L (3.5-5.1) 06/19/23 07:53 Chloride 100 mmol/L (98-107) 06/19/23 07:53 Carbon Dioxide 26 mmol/L (22-29) 06/19/23 07:53 Anion Gap 15.5 (5-19) 06/19/23 07:53 BUN 13 mg/dL (8-23) 06/19/23 07:53 Creatinine 0.6 mg/dL (0.5-0.9) 06/19/23 07:53 GFR Calculation Not Reportable 06/19/23 07:53 Glucose 131 mg/dL (65-115) H 06/19/23 07:53 Calculated Osmolality 288 mOsm/kg (285-295) 06/19/23 07:53 Calcium 8.9 mg/dL (8.5-10.5) 06/19/23 07:53 Total Bilirubin 0.6 mg/dL (0.15-1.2) 06/19/23 07:53 AST 21 U/L (0-32) 06/19/23 07:53 ALT 13 U/L (0-33) 06/19/23 07:53 Alkaline Phosphatase 49 U/L (35-105) 06/19/23 07:53 Troponin T Baseline 9 ng/L (0-10) 06/19/23 13:34 Total Protein 7.3 g/dL (6.6-8.7) 06/19/23 07:53 Albumin 4.4 g/dL (3.5-5.2) 06/19/23 07:53 Globulin 2.9 g/dL (1.3-4.6) 06/19/23 07:53 Lipase 48 U/L (13-60) 06/19/23 07:53 Urine Color Yellow (Yellow) 06/19/23 09:09 Urine Appearance Sl hazy (CLEAR) A 06/19/23 09:09 Urine pH 8 (5-7) H 06/19/23 09:09 Ur Specific [place] 1.015 (1.005-1.030) 06/19/23 09:09 Urine Protein Neg (Negative) 06/19/23 09:09 Urine Glucose (UA) Norm (Normal) 06/19/23 09:09 Urine Ketones Negative (Negative) 06/19/23 09:09 Urine Blood Neg (Negative) 06/19/23 09:09 Urine Nitrate Positive (Negative) H 06/19/23 09:09 Urine Bilirubin Neg (Negative) 06/19/23 09:09 Urine Urobilinogen Norm mg/dL (Negative) 06/19/23 09:09 Ur Leukocyte Esterase Negative (Negative) 06/19/23 09:09 Urine RBC 0-4 /hpf (0-2) H 06/19/23 09:09 Urine WBC None /hpf (0-5) 06/19/23 09:09 Ur Squamous Epith Cells Rare /hpf (0-5) 06/19/23 09:09 Amorphous Sediment Not Reportable 06/19/23 09:09 Urine Bacteria 4+ /hpf (NONE) H 06/19/23 09:09 All radiology interpretation(s) finalized by discharge Discharge Plan Discharge Patient Disposition: Placed in Observation Clinical Impression: Accelerated hypertension, Dizziness Condition: Stable Prescriptions: No Action levothyroxine 25 mcg tablet 25 mcg PO QAM duloxetine [Cymbalta] 60 mg capsule,delayed release(DR/EC) 60 mg PO QAM estradiol [Estrace] 0.01 % (0.1 mg/gram) cream See Rx Instructions VAGINAL .COMPLEX Qty: 42.5 3RF Rx Instructions: 1 gram vaginally; 1 gram vaginally nightly x 2 weeks; then decrease to three times per week, as needed. prednisone 20 mg tablet See Rx Instructions PO .COMPLEX PRN (Reason: joint pain flare) Qty: 30 1RF Rx Instructions: take 2 tab daily for 7 days as needed for arthritis flare PO PRN; leflunomide 20 mg tablet 20 mg PO DAILY Qty: 30 3RF cetirizine 10 mg tablet 10 mg PO QAM milk thistle 500 mg Capsule 500 mg PO .THREE TIMES A WEEK montelukast [Singulair] 10 mg Tablet 10 mg PO QPM fluticasone propionate [Flonase] 50 mcg/actuation [place],Suspension 1 spray INTRANASAL DAILY PRN (Reason: Allergy Symptoms) Rx Instructions: administer into each nostril omeprazole magnesium [Prilosec OTC] 20 mg Tablet,Delayed Release (Dr/Ec) 20 mg PO DAILY PRN (Reason: Heartburn) calcium carbonate-vitamin D3 [Calcium 600 + D(3)] 600 mg-10 mcg (400 unit) Tablet 1 tab PO DAILY magnesium oxide 400 mg magnesium Tablet 400 mg PO DAILY Beet Root Powder See Rx Instructions .ROUTE .COMPLEX Rx Instructions: takes as needed Cay[place] Pepper Capsule 225 mg PO .TWICE A WEEK Referrals: Jaclyn Holloway PA [Primary Care Provider] - Coding Level of Care Code ED Insurance Licensing Supervisor for Edwin Arevalo NIH stroke score NIHSS Level Of Consciousness - 1a: 0 Level Of Consciousness Questions - 1b: Both Correct Level Of Consciousness Commands - 1c: Both Correct Best Gaze - 2: Normal Visual Zazueta - 3: No Visual Loss Facial Palsy - 4: Normal Motor Arm Right - 5: No Drift Motor Arm Left - 5: No Drift Motor Leg Right - 6: No Drift Motor Leg Left - 6: No Drift Limb Ataxia - 7: Absent Sensory - 8: Normal Best Language - 9: No Aphasia Dysarthia - 10: Normal Extinction And Inattention - 11: 0 Score Total Score: 0
[2023-06-19 08:47] LABS: Basophils % 0.7 %; Eosinophils # 0.1 10^3/uL (0.0-0.8); Eosinophils % 2.3 %; Hematocrit 43.3 % (36-47); Lymphocytes # 3.1 10^3/uL (0.8-4.8); Lymphocytes % 50.7 %; Mean Corpuscular Hemoglobin 29.5 pg (27-33); Mean Corpuscular Volume 89.3 fl (85-98); Mean Platelet Volume 9.2 fL (7.4-10.4); Monocytes # 0.6 10^3/uL (0.2-0.9); Monocytes % 9.8 %; Neutrophils % 36.3 %; Nucleated Red Blood Cells % 0 %; Platelet Count 306 10^3/cmm (157-399); Red Blood Count 4.85 10^6/uL (3.85-5.65); Red Cell Distribution Width 13.7 % (12.1-15.1); White Blood Count 6.05 10^3/uL (3.29-11.43)
[2023-06-19 09:11] LABS: Alanine Aminotransferase 13 U/L (0-33); Albumin Level 4.4 g/dL (3.5-5.2); Alkaline Phosphatase 49 U/L (35-105); Anion Gap 15.5 (5-19); Aspartate Amino Transferase 21 U/L (0-32); Blood Urea Nitrogen 13 mg/dL (8-23); Calcium 8.9 mg/dL (8.5-10.5); Carbon Dioxide 26 mmol/L (22-29); Chloride 100 mmol/L (98-107); Globulin 2.9 g/dL (1.3-4.6); Glucose 131 mg/dL (65-115); Lipase 48 U/L (13-60); Osmolality Calculated 288 mOsm/kg (285-295); Potassium 3.5 mmol/L (3.5-5.1); Sodium 138 mmol/L (136-145); Total Bilirubin 0.6 mg/dL (0.15-1.2); Total Protein 7.3 g/dL (6.6-8.7)
--- NOTE | 2023-06-19 09:19 | CT_ITS ---
WS: [id number] CT HEAD NONCONTRAST HISTORY: headache, dizziness, htn TECHNIQUE: Contiguous axial imaging performed through the brain in 2.5 mm imaging. Bone and soft tiss ue windows. Sagittal and coronal reformats reviewed. All CT scans at [facility] use at least one of these dose optimization techniques: automated exposure control; mA and/or kV adjustment per pa tient size (includes targeted exams where dose is matched to clinical indication); or iterative recon struction. DLP: 1046.42 mGy.cm COMPARISON: 06/02/2022 No acute intracranial hemorrhage, midline shift or mass effect. Mild atrophy and small vessel ischemic disease. Small bilateral basal ganglia lacunar infarcts. Ventricles: Normal size with no hydrocephalus. No inferior displacement of the cerebellar tonsils. Paranasal sinuses: As visualized are clear. Mastoid air cells: Well pneumatized. Calvarium and scalp: No skull fracture. New slight soft tissue thickening over the LEFT frontal bone may be an area of recent trauma. IMPRESSION: 1. No acute intracranial hemorrhage or edema. 2. Mild atrophy and small vessel ischemic disease and remote lacunar infarcts. 3. No skull fracture.
[2023-06-19] MEDS: labetalol 5 mg/mL SDV 20mL 10 MG IVP (09:23)
[2023-06-19 10:05] LABS: Add Urine Microscopic? YES; Bilirubin Urine Neg (Negative); Blood Urine Neg (Negative); Glucose Urine UA Norm (Normal); Ketones Urine Negative (Negative); Leukocyte Esterase Urine Negative (Negative); Nitrate Urine Positive (Negative); Protein Urine Neg (Negative); Specific Gravity, Urine 1.015 (1.005-1.030); Urine Appearance SL Hazy (CLEAR); Urine Color Yellow (Yellow); Urobilinogen Urine Norm (Negative); pH Urine 8 (5-7)
[2023-06-19 10:06] LABS: Add Urine Culture? No; Bacteria Urine 4+ /hpf; RBC Urine 0-4 /hpf (0-2); Squamous Epithelial Cell Urine RARE /hpf (0-5)
[2023-06-19] MEDS: hyDRALAzine 20 mg/mL INJ 1 mL IVP (10:20)
--- NOTE | 2023-06-19 10:57 | CT_ITS ---
WS: [id number] CT ABDOMEN AND PELVIS NONCONTRAST HISTORY: hematuria TECHNIQUE: Imaging performed through the abdomen and pelvis. Coronal and sagittal reformats are submi tted. All CT scans at [facility] use at least one of these dose optimization techniques: auto mated exposure control; mA and/or kV adjustment per patient size (includes targeted exams where dose is matched to clinical indication); or iterative reconstruction. DLP: 443.86 mGy.cm COMPARISON: None available. Lower thorax: Small hiatal hernia. Lung bases are clear. Liver: Normal size liver. No mass or bile duct dilatation. Gallbladder: Prior cholecystectomy. Pancreas: Normal size and attenuation. Normal pancreatic duct. No pancreatitis or mass. Spleen: Normal. Adrenal glands: Normal. No mass. Right kidney: Normal size kidney with no mass or hydronephrosis. Left kidney: Normal size kidney with no mass or hydronephrosis. Aorta: Mild atherosclerosis abdominal aorta with no aneurysm. No free fluid, intraperitoneal air or significant lymphadenopathy. GI tract: No obstructive pattern. No wall thickening. Partially visualized appendix is normal. Abdominal wall: Small umbilical hernia contains fat only. Pelvis: Pessary is in place. No free fluid. Osseous structures: Unremarkable. IMPRESSION: 1. No acute abdominal or pelvic abnormalities. 2. No renal obstruction. 3. No GI tract obstruction. 4. Mild diffuse constipation. No evidence for acute diverticulitis. 5. Prior cholecystectomy.
--- NOTE | 2023-06-19 12:36 | ECG_ITS ---
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 Measurements Intervals [place] Rate: 72 P: 66 ID: 180 QRS: -35 QRSD: 74 T: 26 QT: 380 QTc: 416 Interpretive Statements SINUS RHYTHM Poor R wave progression, possible old anterior wall AK LEFT AXIS DEVIATION [QRS AXIS < -30] NONSPECIFIC T-WAVE ABNORMALITY Compared to ECG 06/30/2017 10:01:27 T-wave abnormality now present ST (T wave) deviation no longer present Electronically Signed On 06-19-2023 14:22:05 CDT by Earle Paulino M.D. [id number]
[2023-06-19 14:07] LABS: Troponin(5th) Baseline 9 ng/L (0-10)
--- NOTE | 2023-06-19 14:20 | PC.PHAR ---
DR Elisabeth CH ORDERED FOSAMAX INJECTION 01/20/23 ONE TIME ONLY-TO BE GIVEN HERE AT [facility].
--- NOTE | 2023-06-19 14:34 | PM.HP ---
Providers/Chief Complaint Primary Care Provider: Jaclyn Holloway Chief Complaint: n/v History of Present Illness Elizabeth Dempsey is a 82 year old female With past medical history of osteoarthritis, peripheral neuropathy, GERD, fibromyalgia, degenerative disc disease presented to the hospital with complaint of nausea vomiting dizziness along with dysuria. She says she got dizzy and nauseous which got better on its own and then later recurred again. Stated this happened 3 times. Also felt diaphoretic during those episodes. Patient has not taking any of her morning medications today. He denies chest pain, shortness of breath, hematuria, blood in vomit or stool. She has not vomited and is only dry heaving at this time. Denies any fever, chills. Denies anxiety. She says she has been dizzy for the last week. She does wear a pessary and tries to avoid UTIs however she sometimes gets them. Symptoms are already better when being seen in the ER. ER course: 136/69, 16, 74, 98.4, saturating 96% on room air. On arrival her blood pressure was initially elevated at 180 systolic and therefore she was given labetalol and thereafter was given hydralazine. Patient became hypotensive and was positive orthostatic. Dizziness still present. Dizziness improved nausea improved at a later time. However patient requiring assistance to get to bedside commode. Hospitalist requested to admit patient for observation. UA positive for nitrates, bacteria Medications/Allergies Home Medications Medication Instructions Recorded Confirmed Last Taken Type duloxetine 60 mg capsule,delayed 60 mg PO QAM 04/29/19 06/19/23 06/18/23 History release (Cymbalta) levothyroxine 25 mcg tablet 25 mcg PO QAM 11/20/19 06/19/23 06/18/23 History Beet Root Powder See Rx Instructions .Route .COMPLEX 06/02/22 06/19/23 Unknown History Cayenne Pepper Capsule 225 mg PO .TWICE A WEEK 06/02/22 06/19/23 Unknown History calcium carbonate 600 mg-vitamin 1 tab PO DAILY 06/02/22 06/19/23 06/18/23 History D3 10 mcg (400 unit) tablet (Calcium 600 + D(3)) fluticasone propionate 50 1 spray intranasal DAILY PRN 06/02/22 06/19/23 Unknown History mcg/actuation nasal Allergy Symptoms spray,suspension magnesium oxide 400 mg PO DAILY 06/02/22 06/19/23 06/18/23 History milk thistle 500 mg capsule 500 mg PO .THREE TIMES A WEEK 06/02/22 06/19/23 Unknown History montelukast 10 mg tablet 10 mg PO QPM 06/02/22 06/19/23 06/18/23 History (Singulair) omeprazole magnesium 20 mg 20 mg PO DAILY PRN Heartburn 06/02/22 06/19/23 Unknown History tablet,delayed release (Prilosec OTC) estradiol 0.01% (0.1 mg/gram) See Rx Instructions vaginal 12/30/22 06/19/23 Unknown Rx vaginal cream (Estrace) .COMPLEX #42.5 grams prednisone 20 mg tablet See Rx Instructions PO .COMPLEX 05/17/23 06/19/23 Unknown Rx PRN joint pain flare #30 tabs leflunomide 20 mg tablet 20 mg PO DAILY #30 tabs 05/18/23 06/19/23 06/18/23 Rx cetirizine 10 mg tablet 10 mg PO QAM 06/19/23 06/19/23 06/18/23 History Allergies Allergy/AdvReac Type Severity Reaction Status Date / Time gabapentin Allergy Unknown Unknown Verified 05/22/23 10:03 PFSH Acute PFSH: Medical History Osteoarthritis of hands, bilateral Immunization counseling High risk medication use Inflammatory arthritis Osteoarthritis Peripheral neuropathy DDD (degenerative disc disease) Chronic GERD Fibromyalgia syndrome Qpfrw-[id number] deficiency Pessary maintenance Uterovaginal prolapse, incomplete Uterus comes to the opening of the vaginal introitus with Valsalva Cystocele, midline Patient with third-degree cystocele with Valsalva. 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 Denies family history of Stroke Vitals/I&O/Wt Last Vital Signs Temp 98.4 F 06/19/23 08:19 Pulse 74 06/19/23 13:30 Resp 16 06/19/23 08:19 BP 136/69 06/19/23 13:30 Pulse Ox 96 06/19/23 13:30 O2 Del Method Room Air 06/19/23 13:30 Weight last 48 hrs Weight 83.915 kg Physical Exam Narrative: General: Alert oriented x3, patient seen laying in bed appearing comfortable at this time HEENT: Normocephalic, atraumatic, EOMI, breathing room air Cardio: Regular rate rhythm, normal S1-S2, Respiratory: Clear to auscultation bilaterally no wheezes no rhonchi GI: Abdomen soft, nontender, nondistended, bowel sounds + Behavior: Appropriate and cooperative Extremities: No edema bilateral lower extremity Neuro: [id number]-[id number] normal, CN II to XII normal, no dysdiadochokinesia [id number]-kbln normal, gait not tested No focal deficits identified. Data 06/20/23 04:45 06/20/23 04:45 A&P Assessment and plan (1) Accelerated hypertension: (2) Nausea: Plan #Dizziness, nausea #Orthostatic positive #Hypertensive urgency #Hypothyroidism #Osteoarthritis #UTI ? Initially blood pressure elevated however now in normal range patient received labetalol, hydralazine in ER. Did get profound transient hypotension from medications administered. ? Dizziness and nausea also improved eventually. ? Question posterior circulation stroke? Vertigo??Check MRI ? Check lipid profile. -Check troponin series ? EKG nonischemic ? Placed on IV fluids normal saline 125 cc/h ? Will check orthostatic vitals in a.m. ? Check MRI head with and without contrast. ?Monitor blood pressure every 4 hours ? Continue on LEVOTHYROXINE ? Check TSH ? Check cortisol level - Check echo ? Placed on ceftriaxone daily. UA positive for nitrates, 4+ bacteria. Admission for observation. Expect less than 48 hours stay DVT prophylaxis: SCDs, Lovenox Attestations Medical Necessity Statement*: Less than 48 hours midnight stay. Diagnoses Accelerated hypertension I10 Nausea R11.0
--- NOTE | 2023-06-19 15:18 | ECG_ITS ---
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 Measurements Intervals [place] Rate: 74 P: 65 ME: 171 QRS: -38 QRSD: 85 T: 58 QT: 408 QTc: 454 Interpretive Statements SINUS RHYTHM LEFT AXIS DEVIATION [QRS AXIS < -30] Poor R wave progression POSSIBLE RIGHT VENTRICULAR CONDUCTION DELAY [RSR (QR) IN V1/V2] NONSPECIFIC T-WAVE ABNORMALITY Compared to ECG 06/19/2023 12:36:56 No significant changes Electronically Signed On 06-20-2023 23:08:41 CDT by Ellis King M.D. [email or web address]/[id number]
[2023-06-19 16:11] LABS: Lactic Sepsis W/Reflex 1.2 mmol/L (0.5-2.2)
[2023-06-19] MEDS: cefTRIAXone 1,000 MG in sodium chloride 0.9% (plus) 50 ML 100 MG IV (16:30)
[2023-06-19] MEDS: enoxaparin 40 mg/0.4 mL Syringe SUBCUT (16:31)
[2023-06-19] MEDS: sodium chloride 0.9% 1,000 ML 125 ML IV (16:34)
[2023-06-19 16:35] LABS: Vitamin B12 513 pg/mL (232-1245)
--- NOTE | 2023-06-19 16:40 | USR_ITS ---
PROCEDURE INFORMATION: Exam: US Duplex Bilateral Extracranial Arteries; Complete; Carotid Arteries Exam date and time: 06/19/2023 5:11 PM Age: 82 years old Clinical indication: Dizziness TECHNIQUE: Imaging protocol: Real-time duplex ultrasound scan of the bilateral extracranial arteries combining hein scale, color Doppler and spectral waveform analysis with image documentation. Complete exam. Exam focused on the carotid arteries. COMPARISON: CT head wo con* [id number] 06/19/2023 9:40 AM FINDINGS: Right common carotid artery: Unremarkable. No occlusion or stenosis. Waveforms are normal. Right internal carotid artery: Unremarkable. No occlusion or stenosis. Waveforms are normal. Right ICA/CCA ratio: Within normal limits. Right external carotid artery: No stenosis in the origin. Right vertebral artery: Unremarkable. Antegrade flow. Left common carotid artery: Unremarkable. No occlusion or stenosis. Waveforms are normal. Left internal carotid artery: Unremarkable. No occlusion or stenosis. Waveforms are normal. Left ICA/CCA ratio: Within normal limits. Left external carotid artery: No stenosis in the origin. Left vertebral artery: Unremarkable. Antegrade flow. US/CV carotid duplex BI* [id number] IMPRESSION: No carotid arterial stenosis. REFERENCES: SRU CRITERIA. The degree of internal carotid artery stenosis is based on criteria defined by the Society of Radiologists in Ultrasound (SRU). Normal is no stenosis. Mild is less than 50% stenosis. Moderate is 50-69% stenosis. Severe is greater than 69% stenosis to near occlusion. Near occlusion is a markedly narrowed lumen. Total occlusion is no detectable patent lumen.
[2023-06-19 17:14] LABS: Troponin 5 2HR 9.16 ng/L (0-10); Troponin 5 2HR Delta 0.16 ABS# (0-10)
[2023-06-19] MEDS: aspirin 81 mg EC Tablet PO (18:14)
[2023-06-19] MEDS: ibuprofen 200 mg Tablet 400 MG PO (18:14)
--- NOTE | 2023-06-19 19:27 | ECG_ITS ---
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 Measurements Intervals [place] Rate: 67 P: 113 NM: 183 QRS: 223 QRSD: 86 T: 151 QT: 426 QTc: 450 Interpretive Statements SINUS RHYTHM ARM LEADS REVERSED [INVERTED P AND QRS IN I] DEXTROCARDIA [INVERTED P AND QRS IN V6] Compared to ECG 06/19/2023 15:18:06 Left-axis deviation no longer present T-wave abnormality no longer present Electronically Signed On 06-20-2023 23:17:48 CDT by Ellis King M.D. [email or web address] [email or web address]/store/[id number]
[2023-06-19 20:11] LABS: Troponin 5 6HR 9.32 ng/L (0-10); Troponin 5 6HR Delta 0.32 ng/L (0-12)
[2023-06-19] MEDS: montelukast sodium 10 mg Tablet PO (22:02)
[2023-06-20] MEDS: sodium chloride 0.9% 1,000 ML 125 ML IV ×2 (00:31→11:43)
[2023-06-20 04:00] VITALS: BP 140/71; PULSE 68; RESP 18; TEMP 36.6; O2SAT 97
[2023-06-20] MEDS: acetaminophen 325 mg Tablet 650 MG PO ×2 (04:33→10:41)
[2023-06-20 05:55] LABS: Basophils % 0.2 %; Eosinophils # 0.1 10^3/uL (0.0-0.8); Eosinophils % 2.2 %; Lymphocytes # 1.1 10^3/uL (0.8-4.8); Lymphocytes % 17.8 %; Mean Corpuscular HGB Conc 32.1 g/dL (30-55); Mean Corpuscular Hemoglobin 29.2 pg (27-33); Mean Corpuscular Volume 91.1 fl (85-98); Mean Platelet Volume 9.3 fL (7.4-10.4); Monocytes # 0.4 10^3/uL (0.2-0.9); Monocytes % 6.6 %; Neutrophils # 4.34 10^3/uL (1.8-7.7); Nucleated Red Blood Cells % 0 %; Platelet Count 272 10^3/cmm (157-399); Red Blood Count 4.28 10^6/uL (3.85-5.65); Red Cell Distribution Width 14.1 % (12.1-15.1); White Blood Count 5.94 10^3/uL (3.29-11.43)
[2023-06-20] MEDS: levothyroxine 25 mcg Tablet PO (06:36)
[2023-06-20 06:40] LABS: Alanine Aminotransferase 11 U/L (0-33); Albumin Level 3.7 g/dL (3.5-5.2); Alkaline Phosphatase 41 U/L (35-105); Anion Gap 14.2 (5-19); Aspartate Amino Transferase 16 U/L (0-32); Blood Urea Nitrogen 10 mg/dL (8-23); Calcium 7.7 mg/dL (8.5-10.5); Carbon Dioxide 24 mmol/L (22-29); Chloride 105 mmol/L (98-107); Creatinine Clr Calc Pharmacy 56.8211; Globulin 2.2 g/dL (1.3-4.6); Glucose 136 mg/dL (65-115); Magnesium 2.3 mg/dL (1.7-2.3); Osmolality Calculated 291 mOsm/kg (285-295); Potassium 3.2 mmol/L (3.5-5.1); Sodium 140 mmol/L (136-145); Total Bilirubin 0.5 mg/dL (0.15-1.2); Total Protein 5.9 g/dL (6.6-8.7)
--- NOTE | 2023-06-20 07:20 | MR_ITS ---
WS: [id number] MRI HEAD WITH CONTRAST TECHNIQUE: Sagittal T1, T2 axial, T2 axial FLAIR, axial susceptibility weighted imaging, axial diffus ion weighted images, and coronal T2 images were obtained. Pre and post-T1 axial and post T1 coronal i mages. ADC and FSPGR images. CLINICAL INFORMATION: r/o posterior circulation stroke COMPARISON: CT 06/19/2023 FINDINGS: No evidence of restricted diffusion to suggest acute ischemia. Ventricular system and basal cistern s are patent. Moderate small vessel changes. Moderate parenchymal volume loss. Normal vascular flow v oids at the skull base. No extra-axial fluid collections. No evidence of mass or mass effect. Paranasal sinuses and mastoid air cells are well aerated. No hemosiderin on susceptibly weighted imag es. Temporal lobes and hippocampal formations are normal in appearance. Normal optic chiasm and pitui tary infundibulum. No abnormal intracranial enhancement. Meckel's cave and cavernous sinuses are normal in appearance. Normal visualized dural venous sinuses . Small enhancing lesion in the left facial infraorbital soft tissues along the sphenoid wing measuri ng 6 mm unchanged since 2014 and better visualized on the prior study IMPRESSION: 1. No evidence of restricted diffusion to suggest acute ischemia. 2. Moderate small vessel changes with moderate parenchymal volume loss. 3. No abnormal intracranial enhancement.
[2023-06-20] MEDS: gadobenate dimeglumine 20 mL vial IV (07:59)
[2023-06-20] MEDS: aspirin 81 mg EC Tablet PO (08:47)
[2023-06-20] MEDS: magnesium oxide 400 mg tablet PO (08:47)
[2023-06-20 09:26] VITALS: BP 138/68; PULSE 77; RESP 15; TEMP 36.7; O2SAT 97
--- NOTE | 2023-06-20 09:28 | PC.CHAP ---
Pastoral Care Encounter/Spiritual Assessment Type of Contact [] Declined devil tender visit [] Patient/Family/Request visit [] Outpatient visit [] Follow-up visit [] Physician referral [] Code/Alert [x] Routine visit [] Staff referral [] Actively dying [] Patient sleeping [] Family support [] [] Out of room [] Palliative care [] [] Receiving care in room [] Pre-surgical visit [] Trauma [] Long length of stay [] ICU visit [] Other: Relational/Emotional Strength [x] Patient feels connected with others/family/visitors/staff [] Distress [] Loneliness/isolation [] Abandonment Spirituality of Patient [x] Person of Yazmin [] Attends Moravian of their Yazmin [x] Believes in Prayer [] Reads Bible or Faith materials [] There are Spiritual issues to be addressed Certified Fire Investigator Interventions [x] Prayer [x] Active listening [] Non-anxious presence [x] Spiritual/emotional support [] Crisis/trauma care [] Spiritual counseling [] Bereavement support [] Provided bereavement packet [] Provided Bible/devotional materials [] Provided toy/stuffed animal, coloring book to patient or family member [] Provided Communion [] Anointing/[place] [] Salvation [x] Completed spiritual assessment [] Other: Impact on Illness or Injury [] Angry [] Fearful [] Anxious [] Often cries [] Exhaustion [] Unable to work [] Unable to attend evangelical [] Unable to walk/stand [] Unable to read [] Unable to drive [] Unable to eat/drink [] Unable to sleep [] Unable to be with family [] Patient intubated [] Other: Summary Time spent with patient 5 min
[2023-06-20 12:00] VITALS: BP 153/73; PULSE 73; RESP 16; TEMP 36.5; O2SAT 97
--- NOTE | 2023-06-20 13:37 | PM.DCS ---
Discharge Providers Date of Admission: 06/19/23 14:30 Date of Discharge: June 20, 2023 Attending Provider at Admission: Neha Fernandez MD Attending Provider at Discharge: Neha Fernandez MD Primary Care Provider: Jaclyn Holloway Diagnoses at Discharge Discharge Diagnosis (1) Accelerated hypertension: Status: Acute (2) Nausea: Status: Resolved Reason for Visit Reason for Visit: n/v Hospital Course Hospital Course Patient was dizziness no vomiting. She did try retching. She stated that she has been having this dizziness for the last 1 week. She does wear a pessary and tries to avoid UTIs however she sometimes gets them. Initially on arrival to ER blood pressure was elevated and she was given labetalol and hydralazine. Patient became hypotensive and was orthostatic positive thereafter. This improved with IV fluids. Patient felt better. Was required some assistance to get to the commode and was admitted for observation. Neuroexam was nonfocal. No cerebellar signs present. TSH was ordered, cortisol level was ordered. UA positive for nitrates and bacteria 4+. Posterior circulation stroke was ruled out with MRI. Carotid Dopplers were negative for stenosis. Orthostatic vitals were negative in the morning which were checked by medical therapy. Patient improved with IV fluids and no longer had dizziness at time of discharge. She was still given a prescription for meclizine and discharged home in stable condition to follow-up with her primary care doctor. Home health is recommended for the patient. Physical Exam Narrative: General: Alert oriented x3, patient seen laying in bed appearing comfortable at this time HEENT: Normocephalic, atraumatic, EOMI, breathing room air Cardio: Regular rate rhythm, normal S1-S2, Respiratory: Clear to auscultation bilaterally no wheezes no rhonchi GI: Abdomen soft, nontender, nondistended, bowel sounds + Behavior: Appropriate and cooperative Extremities: No edema bilateral lower extremity Neuro: Nonfocal. No longer reports dizziness. Discharge Data Studies Completed and Pending Completed Studies During Hospitalization Category Date Time Status CT head wo con* [id number] Stat Cat Scan 06/19/23 09:[address] kidney stone [id number] Stat Cat Scan 06/19/23 10:57 Completed MR head wo/w con [id number] Stat MRI 06/20/23 07:20 Completed CV carotid duplex BI* [id number] Stat Ultrasound 06/19/23 16:40 Completed Radiology Impressions Carotid Doppler Study 06/19/23 16:40 IMPRESSION: No carotid arterial stenosis. REFERENCES: SRU CRITERIA. The degree of internal carotid artery stenosis is based on criteria defined by the Society of Radiologists in Ultrasound (SRU). Normal is no stenosis. Mild is less than 50% stenosis. Moderate is 50-69% stenosis. Severe is greater than 69% stenosis to near occlusion. Near occlusion is a markedly narrowed lumen. Total occlusion is no detectable patent lumen. Laboratory Results WBC 5.94 10^3/uL (3.29-11.43) 06/20/23 04:45 RBC 4.28 10^6/uL (3.85-5.65) 06/20/23 04:45 Hgb 12.50 g/dL (11.27-16.99) 06/20/23 04:45 Hct 39.0 % (36-47) 06/20/23 04:45 MCV 91.1 fl (85-98) 06/20/23 04:45 MCH 29.2 pg (27-33) 06/20/23 04:45 MCHC 32.1 g/dL (30-55) 06/20/23 04:45 RDW 14.1 % (12.1-15.1) 06/20/23 04:45 Plt Count 272 10^3/cmm (157-399) 06/20/23 04:45 MPV 9.3 fL (7.4-10.4) 06/20/23 04:45 Neut % (Auto) 73.0 % 06/20/23 04:45 Lymph % (Auto) 17.8 % 06/20/23 04:45 [place] % (Auto) 6.6 % 06/20/23 04:45 Eos % (Auto) 2.2 % 06/20/23 04:45 Baso % (Auto) 0.2 % 06/20/23 04:45 Neut # (Auto) 4.34 10^3/uL (1.8-7.7) 06/20/23 04:45 Lymph # (Auto) 1.1 10^3/uL (0.8-4.8) 06/20/23 04:45 [place] # (Auto) 0.4 10^3/uL (0.2-0.9) 06/20/23 04:45 Eos # (Auto) 0.1 10^3/uL (0.0-0.8) 06/20/23 04:45 Baso # (Auto) 0.0 10^3/uL (0.0-0.1) 06/20/23 04:45 Nucleated RBC % (auto) 0 % 06/20/23 04:45 Nucleated RBCs # 0.0 /100WBC 06/20/23 04:45 Sodium 140 mmol/L (136-145) 06/20/23 04:45 Potassium 3.2 mmol/L (3.5-5.1) L 06/20/23 04:45 Chloride 105 mmol/L (98-107) 06/20/23 04:45 Carbon Dioxide 24 mmol/L (22-29) 06/20/23 04:45 Anion Gap 14.2 (5-19) 06/20/23 04:45 BUN 10 mg/dL (8-23) 06/20/23 04:45 Creatinine 0.6 mg/dL (0.5-0.9) 06/20/23 04:45 GFR Calculation Not Reportable 06/20/23 04:45 Glucose 136 mg/dL (65-115) H 06/20/23 04:45 Calculated Osmolality 291 mOsm/kg (285-295) 06/20/23 04:45 Lactic Acid 1.2 mmol/L (0.5-2.2) 06/19/23 15:40 Calcium 7.7 mg/dL (8.5-10.5) L 06/20/23 04:45 Magnesium 2.3 mg/dL (1.7-2.3) 06/20/23 04:45 Total Bilirubin 0.5 mg/dL (0.15-1.2) 06/20/23 04:45 AST 16 U/L (0-32) 06/20/23 04:45 ALT 11 U/L (0-33) 06/20/23 04:45 Alkaline Phosphatase 41 U/L (35-105) 06/20/23 04:45 Troponin T Baseline 9 ng/L (0-10) 06/19/23 13:34 Troponin T 120 Minute 9.16 ng/L (0-10) 06/19/23 15:40 Delta Troponin T 0.16 ABS# (0-10) 06/19/23 15:40 Troponin T Hi Sens 6Hr 9.32 ng/L (0-10) 06/19/23 19:42 Troponin T Hi Sens 6Hr Delta 0.32 ng/L (0-12) 06/19/23 19:42 Total Protein 5.9 g/dL (6.6-8.7) L 06/20/23 04:45 Albumin 3.7 g/dL (3.5-5.2) 06/20/23 04:45 Globulin 2.2 g/dL (1.3-4.6) 06/20/23 04:45 Lipase 48 U/L (13-60) 06/19/23 07:53 Vitamin B12 513 pg/mL (232-1245) 06/19/23 07:53 TSH 2.00 uIU/mL (0.27-4.20) 06/19/23 07:53 Urine Color Yellow (Yellow) 06/19/23 09:09 Urine Appearance Sl hazy (CLEAR) A 06/19/23 09:09 Urine pH 8 (5-7) H 06/19/23 09:09 Ur Specific [place] 1.015 (1.005-1.030) 06/19/23 09:09 Urine Protein Neg (Negative) 06/19/23 09:09 Urine Glucose (UA) Norm (Normal) 06/19/23 09:09 Urine Ketones Negative (Negative) 06/19/23 09:09 Urine Blood Neg (Negative) 06/19/23 09:09 Urine Nitrate Positive (Negative) H 06/19/23 09:09 Urine Bilirubin Neg (Negative) 06/19/23 09:09 Urine Urobilinogen Norm mg/dL (Negative) 06/19/23 09:09 Ur Leukocyte Esterase Negative (Negative) 06/19/23 09:09 Urine RBC 0-4 /hpf (0-2) H 06/19/23 09:09 Urine WBC None /hpf (0-5) 06/19/23 09:09 Ur Squamous Epith Cells Rare /hpf (0-5) 06/19/23 09:09 Amorphous Sediment Not Reportable 06/19/23 09:09 Urine Bacteria 4+ /hpf (NONE) H 06/19/23 09:09 Vitals Last Vital Signs Temp 97.7 F 06/20/23 12:00 Pulse 73 06/20/23 12:00 Resp 16 06/20/23 12:00 BP 153/73 06/20/23 12:00 Pulse Ox 97 06/20/23 12:00 O2 Del Method Room Air 06/19/23 19:54 Discharge Plan Discharge Patient Disposition: Home Condition: Stable Prescriptions: New cefdinir 300 mg capsule 300 mg PO BID 7 Days Qty: 14 0RF meclizine 25 mg tablet 12.5 mg PO TID PRN (Reason: dizziness) Qty: 10 0RF Continued levothyroxine 25 mcg tablet 25 mcg PO QAM duloxetine [Cymbalta] 60 mg capsule,delayed release(DR/EC) 60 mg PO QAM estradiol [Estrace] 0.01 % (0.1 mg/gram) cream See Rx Instructions VAGINAL .COMPLEX Qty: 42.5 3RF Rx Instructions: 1 gram vaginally; 1 gram vaginally nightly x 2 weeks; then decrease to three times per week, as needed. prednisone 20 mg tablet See Rx Instructions PO .COMPLEX PRN (Reason: joint pain flare) Qty: 30 1RF Rx Instructions: take 2 tab daily for 7 days as needed for arthritis flare PO PRN; leflunomide 20 mg tablet 20 mg PO DAILY Qty: 30 3RF cetirizine 10 mg tablet 10 mg PO QAM montelukast [Singulair] 10 mg Tablet 10 mg PO QPM fluticasone propionate 50 mcg/actuation [place],Suspension 1 spray INTRANASAL DAILY PRN (Reason: Allergy Symptoms) Rx Instructions: administer into each nostril omeprazole magnesium [Prilosec OTC] 20 mg Tablet,Delayed Release (Dr/Ec) 20 mg PO DAILY PRN (Reason: Heartburn) calcium carbonate-vitamin D3 [Calcium 600 + D(3)] 600 mg-10 mcg (400 unit) Tablet 1 tab PO DAILY magnesium oxide 400 mg magnesium Tablet 400 mg PO DAILY Beet Root Powder See Rx Instructions .ROUTE .COMPLEX Rx Instructions: takes as needed Cayenne Pepper Capsule 225 mg PO .TWICE A WEEK Held milk thistle 500 mg Capsule 500 mg PO .THREE TIMES A WEEK Hold Instructions: see pcp Discharge Orders: Discharge Order (Routine); Ordered 06/20/23 Ordered By: Neha Fernandez Other Ambulatory Orders: CV. echo complete* [id number] (Routine) Timeframe: 1 Day Facility: [facility] - Location: Radiology Ordered By: Neha Fernandez Referrals: Jaclyn Holloway PA [Primary Care Provider] - (We have notified your physician's clinic of the need for a follow-up appointment to be scheduled. If you have not heard from them within the next 2 business days, please call them directly. ) Discharge Diet: Cardiac Discharge Activity: Increase activity as tolerated and As per PT/OT instructions Patient Instructions: Dizziness, Meclizine (By mouth), Cefdinir (By mouth), Opioid Safety Discharge Attestations Time Spent in Discharge Care*: less than 30 min Quality Metrics Clinical Quality Measures [ No reported AMI, CVA or VTE this stay] Coding Level of Care Code Acute Code for Chg Fwd Diagnoses Accelerated hypertension I10 Nausea R11.0
[2023-06-20] MEDS: potassium chloride ER 20 mEq Tablet 40 MEQ PO (13:52)
[2023-06-20 15:51] VITALS: BP 150/58; PULSE 74; RESP 18; TEMP 36.8; O2SAT 97
[2023-06-20 17:32] VITALS: BP 150/58; PULSE 74; RESP 18; TEMP 36.8; O2SAT 97
== END 2023-06-20 17:25 | disposition home or self-care (01) ==
LOC: ER 14:38 → MEDSURG 18:58
PROVIDERS: Admitting Provider Internal Medicine; Emergency Provider Family Medicine; PCP Physician Assistant; Visit Provider Internal Medicine
DX: I10 Essential (primary) hypertension (principal); R11.0 Nausea; M79.7 Fibromyalgia; K21.9 Gastro-esophageal reflux disease without esophagitis; R42 Dizziness and giddiness; I95.1 Orthostatic hypotension; E03.9 Hypothyroidism, unspecified; M19.90 Unspecified osteoarthritis, unspecified site; N39.0 Urinary tract infection, site not specified
CPT/HCPCS: 36415; 70450; 70553; 74176; 80053; 81001; 82607; 83605; 83690; 83735; 84443; 84484; 85025; 93005; 93880; 96365; 96372; 96375; 97161; 97165; 97530; 99285; A9577; G0378; J0360; J0696; J1650; J3490; J7030

== ENCOUNTER 2023-07-04 20:35 | Emergency (ER) | payer MEDICARE, SELFPAY ==
[2023-07-04] VITALS (8 sets, daily range): BP systolic 128–166; BP diastolic 66–89; PULSE 82–93; RESP 15–18; TEMP 36.7; O2SAT 96–98; BMI 24.2
--- NOTE | 2023-07-04 20:39 | ECG_ITS ---
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 Measurements Intervals [place] Rate: 79 P: 70 [place]: 182 QRS: -47 QRSD: 74 T: 11 QT: 352 QTc: 404 Interpretive Statements SINUS RHYTHM POSSIBLE RIGHT VENTRICULAR CONDUCTION DELAY [RSR (QR) IN V1/V2] POSSIBLE ANTERIOR MYOCARDIAL INFARCTION , PROBABLY OLD [30 ms Q WAVE IN V3/V4, OR R < 0.2 mV IN V4] INFERIOR MYOCARDIAL INFARCTION , PROBABLY OLD [40+ ms Q WAVE AND/OR ST/T ABNORMALITY IN II/aVF] Compared to ECG 06/19/2023 20:55:31 Myocardial infarct finding now present Electronically Signed On 07-05-2023 23:49:07 CDT by Ellis King M.D. [id number]
--- NOTE | 2023-07-04 20:50 | ED_ITS ---
HPI - General Adult 2 General: Chief complaint: General Medical Stated complaint: htn Time Seen by Provider: 07/04/23 20:40 Source: patient and EMS Mode of arrival: EMS Limitations: no limitations History of Present Illness: 82-year-old female who states she was ad mitted here last week she had had dizziness along with hypertension was discharged states she did follow-up with her PCP and was started on metoprolol states that her blood pressure been doing well but tonight she started to just feel funny and flushed she took her blood pressure was in the 180s she became concerned and called EMS she denies any chest pain denies any headache denies any dizziness currently her blood pressure here is 161/88 states she has been taking her metoprolol as prescribed. Associated symptoms: Deny chest pain, dyspnea, headache(s), nausea, rash or vomiting Review of Systems 2 Const: Denies: fever(s) or chills ENMT: Denies: throat pain or dental pain Card: Denies: chest pain Resp: Denies: dyspnea GI: Denies: abdominal pain, nausea, vomiting or diarrhea : Denies: dysuria Musc: Denies: neck pain or back pain Skin/Breast: Denies: rash Neuro: Denies: headache(s) PFSH ED 2 PFSH: Medical History Osteoarthritis of hands, bilateral Immunization counseling High risk medication use Inflammatory arthritis Osteoarthritis Peripheral neuropathy DDD (degenerative disc disease) Chronic GERD Fibromyalgia syndrome Muciv-7-[id number] deficiency Pessary maintenance Uterovaginal prolapse, incomplete Uterus comes to the opening of the vaginal introitus with Valsalva Cystocele, midline Patient with third-degree cystocele with Valsalva. 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 Denies family history of Stroke Physical Exam 2 Const: COMMON NORMALS: no acute distress, patient oriented x3 and healthy appearing HENMT: COMMON NORMALS: normocephalic and atraumatic HEAD & SCALP: n ormocephalic and atraumatic Eye: COMMON NORMALS: Equal, round and reactive pupils present and EOMs intact bilaterally PUPIL: Yes Equal, round and reactive pupils present Neck/C-Spine: COMMON NORMALS: full ROM and supple Chest: COMMONS NORMALS: normal inspection of the chest Resp: COMMON NORMALS: normal respiratory effort Cardio: COMMON NORMALS: regular rate, regular rhythm and No murmurs present (Cardio) RATE: regular rate RHYTHM: regular rhythm GI: COMMON NORMALS: Normal to inspection, nondistended, normoactive bowel sounds present Extremity: COMMON NORMALS: normal to inspection and full ROM Neuro: COMMON NORMALS: patient oriented x3, moves all extremities and no focal motor deficits Psych: COMMON NORMALS: mental status grossly normal, Normal thought process present and cooperative THOUGHT PROCESS: Normal thought process present Skin: COMMON NORMALS: no rashes or lesions noted and no wounds GENERAL SKIN EXAM: no rashes or lesions noted Course 2 Vital Signs: Vital signs: Vital Signs Temperature 98.0 F 07/04/23 20:36 Pulse Rate 82 07/04/23 20:55 Respiratory Rate 18 07/04/23 20:36 Blood Pressure 142/76 07/04/23 21:17 Pulse Oximetry 98 07/04/23 20:55 Oxygen Delivery Me thod Room Air 07/04/23 20:36 MDM - General Adult Medical Decision Making Patient presents here with hypertension her blood pressure is improved now 132/67 her blood work here is all normal. Patient had an extensive workup when she was admitted last week including MRI of the head ultrasound the carotid arteries and normal troponins. She is well-appearing here her blood work x-ray here EKG here are all normal she is stable for discharge she is to continue her metoprolol she is follow-up with her PCP in 4 to 7 days return if worsening she understands agrees to plan. Medical Records I reviewed the patient's medical records. Lab Data I reviewed the patient's lab results. 07/04/23 20:15 07/04/23 20:15 Laboratory Results WBC 6.56 10^3/uL (3.29-11.43) 07/04/23 20:15 RBC 4.98 10^6/uL (3.85-5.65) 07/04/23 20:15 Hgb 14.60 g/dL (11.27-16.99) 07/04/23 20:15 Hct 43.8 % (36-47) 07/04/23 20:15 MCV 88.0 fl (85-98) 07/04/23 20:15 MCH 29.3 pg (27-33) 07/04/23 20:15 MCHC 33.3 g/dL (30-55) 07/04/23 20:15 RDW 13.3 % (12.1-15.1) 07/04/23 20:15 Plt Count 325 10^3/cmm (157-399) 07/04/23 20:15 MPV 9.2 fL (7.4-10.4) 07/04/23 20:15 Neut % (Auto) 38.7 % 07/04/23 20:15 Lymph % (Auto) 48.0 % 07/04/23 20:15 [place] % (Auto) 9.0 % 07/04/23 20:15 Eos % (Auto) 2.6 % 07/04/23 20:15 Baso % (Auto) 1.5 % 07/04/23 20:15 Neut # (Auto) 2.54 10^3/uL (1.8-7.7) 07/04/23 20:15 Lymph # (Auto) 3.2 10^3/uL (0.8-4.8) 07/04/23 20:15 [place] # (Auto) 0.6 10^3/uL (0.2-0.9) 07/04/23 20:15 Eos # (Auto) 0.2 10^3/uL (0.0-0.8) 07/04/23 20:15 Baso # (Auto) 0.1 10^3/uL (0.0-0.1) 07/04/23 20:15 Nucleated RBC % (auto) 0 % 07/04/23 20:15 Nucleated RBCs # 0.0 /100WBC 07/04/23 20:15 Sodium 139 mmol/L (136-145) 07/04/23 20:15 Potassium 3.6 mmol/L (3.5-5.1) 07/04/23 20:15 Chloride 102 mmol/L (98-107) 07/04/23 20:15 Carbon Dioxide 25 mmol/L (22-29) 07/04/23 20:15 Anion Gap 15.6 (5-19) 07/04/23 20:15 BUN 15 mg/dL (8-23) 07/04/23 20:15 Creatinine 0.7 mg/dL (0.5-0.9) 07/04/23 20:15 GFR Calculation Not Reportable 07/04/23 20:15 Glucose 133 mg/dL (65-115) H 07/04/23 20:15 Calculated Osmolality 291 mOsm/kg (285-295) 07/04/23 20:15 Calcium 9.1 mg/dL (8.5-10.5) 07/04/23 20:15 Total Bilirubin 0.6 mg/dL (0.15-1.2) 07/04/23 20:15 AST 20 U/L (0-32) 07/04/23 20:15 ALT 17 U/L (0-33) 07/04/23 20:15 Alkaline Phosphatase 57 U/L (35-105) 07/04/23 20:15 Total Protein 7.5 g/dL (6.6-8.7) 07/04/23 20:15 Albumin 4.7 g/dL (3.5-5.2) 07/04/23 20:15 Globulin 2.8 g/dL (1.3-4.6) 07/04/23 20:15 No radiology studies performed this visit EKG Data EKG 1: I personally reviewed and interpreted this EKG as follows: EKG interpretation date: 07/04/23 EKG interpretation time: 20:49 Interpretation: nsr hr [address] or t wave abnormalities qrs 74 qtc 386 Discharge Plan Discharge Patient Disposition: Home Clinical Impression: Hypertension Condition: Stable Prescriptions: No Action levothyroxine 25 mcg tablet 25 mcg PO QAM duloxetine [Cymbalta] 60 mg capsule,delayed release(DR/EC) 60 mg PO QAM estradiol [Estrace] 0.01 % (0.1 mg/gram) cream See Rx Instructions VAGINAL .COMPLEX Qty: 42.5 3RF Rx Instructions: 1 gram vaginally; 1 gram vaginally nightly x 2 weeks; then decrease to three times per week, as needed. prednisone 20 mg tablet See Rx Instructions PO .COMPLEX PRN (Reason: joint pain flare) Qty: 30 1RF Rx Instructions: take 2 tab daily for 7 days as needed for arthritis flare PO PRN; leflunomide 20 mg tablet 20 mg PO DAILY Qty: 30 3RF cetirizine 10 mg tablet 10 mg PO QAM meclizine 25 mg tablet 12.5 mg PO TID PRN (Reason: dizziness) Qty: 10 0RF milk thistle 500 mg Capsule 500 mg PO .THREE TIMES A WEEK Hold Instructions: see pcp montelukast [Singulair] 10 mg Tablet 10 mg PO QPM fluticasone propionate 50 mcg/actuation [place],Suspension 1 spray INTRANASAL DAILY PRN (Reason: Allergy Symptoms) Rx Instructions: administer into each nostril omeprazole magnesium [Prilosec OTC] 20 mg Tablet,Delayed Release (Dr/Ec) 20 mg PO DAILY PRN (Reason: Heartburn) calcium carbonate-vitamin D3 [Calcium 600 + D(3)] 600 mg-10 mcg (400 unit) Tablet 1 tab PO DAILY magnesium oxide 400 mg magnesium Tablet 400 mg PO DAILY Beet Root Powder See Rx Instructions .ROUTE .COMPLEX Rx Instructions: takes as needed Cay[place] Pepper Capsule 225 mg PO .TWICE A WEEK Discharge Orders: Discharge ED (Routine); Ordered 07/04/23 Ordered By: Pedro Godinez Referrals: Jaclyn Holloway PA [Primary Care Provider] - 4-7 days Discharge Diet: Advance as tolerated Discharge Activity: Resume usual activity Patient Instructions: Hypertension (ED) Coding Level of Care Code ED Business Information Analyst for Edwin Arevalo
[2023-07-04] MEDS: hyDRALAzine 20 mg/mL INJ 1 mL 5 MG IVP (20:55)
[2023-07-04 20:56] LABS: Basophils # 0.1 10^3/uL (0.0-0.1); Basophils % 1.5 %; Eosinophils # 0.2 10^3/uL (0.0-0.8); Eosinophils % 2.6 %; Hematocrit 43.8 % (36-47); Lymphocytes # 3.2 10^3/uL (0.8-4.8); Mean Corpuscular HGB Conc 33.3 g/dL (30-55); Mean Corpuscular Hemoglobin 29.3 pg (27-33); Mean Platelet Volume 9.2 fL (7.4-10.4); Monocytes # 0.6 10^3/uL (0.2-0.9); Neutrophils # 2.54 10^3/uL (1.8-7.7); Neutrophils % 38.7 %; Nucleated Red Blood Cells % 0 %; Platelet Count 325 10^3/cmm (157-399); Red Blood Count 4.98 10^6/uL (3.85-5.65); Red Cell Distribution Width 13.3 % (12.1-15.1); White Blood Count 6.56 10^3/uL (3.29-11.43)
[2023-07-04 21:13] LABS: Alanine Aminotransferase 17 U/L (0-33); Albumin Level 4.7 g/dL (3.5-5.2); Alkaline Phosphatase 57 U/L (35-105); Anion Gap 15.6 (5-19); Aspartate Amino Transferase 20 U/L (0-32); Calcium 9.1 mg/dL (8.5-10.5); Carbon Dioxide 25 mmol/L (22-29); Chloride 102 mmol/L (98-107); Creatinine Clr Calc Pharmacy 55.6003; Globulin 2.8 g/dL (1.3-4.6); Glucose 133 mg/dL (65-115); Potassium 3.6 mmol/L (3.5-5.1); Sodium 139 mmol/L (136-145); Total Bilirubin 0.6 mg/dL (0.15-1.2); Total Protein 7.5 g/dL (6.6-8.7)
[2023-07-04] MEDS: sodium chloride 0.9% 1,000 ML 999 ML IV (21:14)
[2023-07-04 21:17] LABS: Blood Urea Nitrogen 15 mg/dL (8-23); Osmolality Calculated 291 mOsm/kg (285-295)
--- NOTE | 2023-07-04 21:50 | XRR_ITS ---
PROCEDURE INFORMATION: Exam: XR Chest Exam date and time: 07/04/2023 9:54 PM Age: 82 years old Clinical indication: Pain; Chest pressure; Additional info: Cp TECHNIQUE: Imaging protocol: Radiologic exam of the chest. Views: 1 view. COMPARISON: CR XR chest 2V* [id number] 04/07/2022 2:17 PM FINDINGS: Lungs: No focal consolidation or other acute appearing pulmonary opacity. Pleural spaces: No pleural effusion or pneumothorax noted. There is soft tissue density projected with the left lateral pleural wall, underlying mass can not be excluded, recommend clinical correlation and CT as indicated. Heart/Mediastinum: There is no cardiomegaly. Bones/joints: No acute osseous abnormality. Intraperitoneal space: There is no free intraperitoneal air. Organs: Status post cholecystectomy. XR/XR chest 1V portable [id number] IMPRESSION: 1. Left lateral pleural soft tissue density, underlying mass can not be excluded, recommend clinical correlation and CT as indicated. 2. No acute cardiopulmonary disease.
== END 2023-07-04 23:04 | disposition home or self-care (01) ==
PROVIDERS: Emergency Provider Emergency Medicine; PCP Physician Assistant
DX: I10 Essential (primary) hypertension (principal)
CPT/HCPCS: 71045; 80053; 85025; 93005; 96374; 99285; J0360; J7030

== ENCOUNTER → 2023-07-10 12:50 | Outpatient (BNVA) | payer MEDICARE, OTHER, SELFPAY | PROVIDERS: PCP Physician Assistant; Visit Provider Dermatology | DX: R20.2 Paresthesia of skin (principal); L85.3 Xerosis cutis; L82.1 Other seborrheic keratosis; D22.72 Melanocytic nevi of left lower limb, including hip | CPT/HCPCS: 99213 ==

== ENCOUNTER 2023-07-17 06:53 | Outpatient (CLI) | payer MEDICARE, OTHER, SELFPAY ==
--- NOTE | 2023-07-17 07:09 | CT_ITS ---
WS: [id number] CT chest w con* [id number] HISTORY: ABNORMAL IMAGING FINDINGS TECHNIQUE: Axial imaging performed through the thorax. Coronal and sagittal reformats are submitted. All CT scans at [facility] use at least one of these dose optimization techniques: automated exposure control; mA and/or kV adjustment per patient size (includes targeted exams where dose is mat ched to clinical indication); or iterative reconstruction. CONTRAST: Omnipaque 350; 100 mL IV. DLP: 235.55 mGy.cm COMPARISON: Chest radiograph 07/04/2023. Lungs and central airway: Marked pulmonary hyperexpansion. Mild focal pleural thickening RIGHT upper thorax. There is very minimal interstitial thickening at the RIGHT lung base in the tree-in-bud distr ibution. Benign granuloma along the RIGHT minor fissure. There is no soft tissue mass projecting over the RIGHT thorax. The soft tissue mass is related to rotation of the patient and overlying dense tato ast implant. Pleura: Normal. No pleural effusion. Heart and pericardium: Normal size heart with no pericardial effusion. Mediastinum and kadi: No mediastinum or hilar adenopathy. Vessels: Mild atherosclerosis aorta. No aneurysm. Normal size pulmonary artery. Chest wall and lower neck: Bilateral breast implants with partial capsular contraction around the RIG HT breast implant. Upper abdomen: Normal. Osseous structures: No destructive process. IMPRESSION: 1. No pulmonary mass. The increased opacification over the LEFT thorax seen on recent radiograph is due to the breast implant and rotation of the patient. 2. Marked pulmonary hyperexpansion. 3. No adenopathy. 4. Mild atherosclerosis aorta. 5. Benign perifissural granuloma, RIGHT minor fissure.
[2023-07-17] MEDS: iohexol 350 mg/mL 500 mL Btl (per mL) IV (08:00)
== END 2023-07-17 06:54 | disposition home or self-care (01) ==
LOC: RAD 06:53
PROVIDERS: PCP Physician Assistant; Visit Provider Physician Assistant
DX: R93.89 Abnormal findings on diagnostic imaging of other specified body structures (principal); I70.0 Atherosclerosis of aorta; J98.4 Other disorders of lung
CPT/HCPCS: 71260; Q9967

== ENCOUNTER → 2023-08-03 10:06 | Outpatient (BNVA) | payer MEDICARE, OTHER, SELFPAY | PROVIDERS: PCP Physician Assistant; Visit Provider Nurse Practitioner Women's Health | DX: Z46.89 Encounter for fitting and adjustment of other specified devices (principal); A60.00 Herpesviral infection of urogenital system, unspecified; N81.2 Incomplete uterovaginal prolapse; R30.0 Dysuria | CPT/HCPCS: 81000; 87086 ==

== ENCOUNTER → 2023-10-05 11:03 | Outpatient (BNVA) | payer MEDICARE, OTHER, SELFPAY | PROVIDERS: PCP Physician Assistant; Visit Provider Nurse Practitioner Women's Health | DX: R39.9 Unspecified symptoms and signs involving the genitourinary system (principal); R33.9 Retention of urine, unspecified; N81.2 Incomplete uterovaginal prolapse; Z46.89 Encounter for fitting and adjustment of other specified devices; R30.0 Dysuria | CPT/HCPCS: 84315; 87086 ==

== ENCOUNTER 2023-12-04 18:39 | Emergency (ER) | payer MEDICARE, OTHER, SELFPAY ==
[2023-12-04 18:45] VITALS: BP 132/78; PULSE 90; RESP 14; TEMP 36.6; O2SAT 99
[2023-12-04 18:50] VITALS: BP 136/78; PULSE 78; O2SAT 97
--- NOTE | 2023-12-04 19:11 | CTR_ITS ---
PROCEDURE INFORMATION: Exam: CT Head Without Contrast Exam date and time: 12/04/2023 7:26 PM Age: 83 years old Clinical indication: Injury or trauma; Fall; Laceration; Without residual foreign body; Forehead; Additional info: Fall/head inj TECHNIQUE: Imaging protocol: Computed tomography of the head without contrast. Radiation optimization: All CT scans at this facility use at least one of these dose optimization techniques: automated exposure control; mA and/or kV adjustment per patient size (includes targeted exams where dose is matched to clinical indication); or iterative reconstruction. COMPARISON: MR head wo/w con [id number] 06/20/2023 7:36 AM RADIATION DOSE METRICS: Total DLP (mGy-cm): 1108 FINDINGS: Brain: No acute intracranial hemorrhage or territorial infarction. No mass effect or midline shift. Mild microangiopathy with global cerebral volume loss. Cerebral ventricles: No ventriculomegaly. Paranasal sinuses: Visualized sinuses are unremarkable. No fluid levels. Mastoid air cells: Visualized mastoid air cells are well aerated. Bones: No calvarial fractures. Soft tissues: Small hematoma overlying the left frontal bone. CT/CT head wo con* [id number] IMPRESSION: No acute intracranial findings. Small hematoma overlying the left frontal bone. No underlying calvarial fracture.
--- NOTE | 2023-12-04 19:11 | XRR_ITS ---
PROCEDURE INFORMATION: Exam: XR Right Knee Exam date and time: 12/04/2023 7:18 PM Age: 83 years old Clinical indication: Injury or trauma; Fall; Other: Pain; Additional info: Fall/knee pain/pain with bearing weight TECHNIQUE: Imaging protocol: Radiologic exam of the right knee. Views: 3 views. COMPARISON: CR XR knee RT 3V* [id number] 10/13/2020 12:02 PM FINDINGS: Bones/joints: Advanced osteoarthritis noted with loss of joint space, marginal spurs. Soft tissues: Normal. XR/XR knee RT 3V* [id number] IMPRESSION: Advanced osteoarthritis noted with loss of joint space, marginal spurs.
--- NOTE | 2023-12-04 19:11 | CTR_ITS ---
PROCEDURE INFORMATION: Exam: CT Cervical Spine Without Contrast Exam date and time: 12/04/2023 7:26 PM Age: 83 years old Clinical indication: Injury or trauma; Fall; Other: Pain; Additional info: Fall/head inj TECHNIQUE: Imaging protocol: Computed tomography of the cervical spine without contrast. Radiation optimization: All CT scans at this facility use at least one of these dose optimization techniques: automated exposure control; mA and/or kV adjustment per patient size (includes targeted exams where dose is matched to clinical indication); or iterative reconstruction. COMPARISON: MR cervical spin wo con* [id number] 11/16/2021 12:50 PM RADIATION DOSE METRICS: Total DLP (mGy-cm): 904 FINDINGS: Bones: No acute fractures or traumatic subluxations. 0.3 cm anterolisthesis of C2 on C3. Moderate intervertebral disc space narrowing with posterior disc osteophyte complexes at C4-C5 and C5-C6. Bilateral facet and uncovertebral joint arthropathy. The vertebral body heights are preserved. Lungs: Biapical pleural-parenchymal scarring. Soft tissues: Unremarkable. CT/CT cervical spin wo con* [id number] IMPRESSION: No acute fractures or traumatic subluxations. Moderate spondylosis as described above.
--- NOTE | 2023-12-04 19:21 | ED_ITS ---
Documented by User: FREEMAN Terrazas 12/04/23 20:14 HPI - Fall General: Chief Complaint: Fall Stated Complaint: head lac Time Seen by Provider: 12/04/23 18:50 Source: patient Mode of arrival: ambulatory Limitations: no limitations History of Present Illness: Patient is an 83-year-old female who presents to the emergency department with family due to a fall just prior to arrival. Patient said she had a simple trip and fall outside onto concrete, striking her left frontal scalp and injuring her right knee in the process. She was on the ground for about 5 minutes, was helped up and states that she did not lose consciousness at any time. She is not on any blood thinners. She is not reporting any neurological symptoms at this time, though notes feeling somewhat nauseous. She reports history of arthritis in the right knee, no history of knee replacement though she has had 1 on the left. She has remained ambulatory since the incident though is brought into the emergency department by wheelchair. Nothing for pain at this time. She arrives with a large hematoma over the left frontal scalp with a small abrasion, no active bleeding at this time and no focal neurological deficit noted. MD complaint: fall Onset (ago): minute(s) Fall from: standing Fall witnessed: yes, by family Place fall occurred: home Loss of consciousness: None Prolonged down time: no Symptoms prior to fall: none Context: tripped/slipped Location of injury: head Location of injury - extremities: Right: knee Associated symptoms-after fall: Denies abdominal pain, chest pain, headache(s), lightheadedness or neck pain Related Data Home Medications Medication Instructions Recorded Confirmed duloxetine 60 mg capsule,delayed 60 mg PO QAM 04/29/19 12/06/23 release (Cymbalta) levothyroxine 25 mcg tablet 25 mcg PO QAM 11/20/19 12/06/23 Beet Root Powder See Rx Instructions .Route .COMPLEX 06/02/22 12/06/23 Cayenne Pepper Capsule 225 mg PO .TWICE A WEEK 06/02/22 12/06/23 calcium carbonate 600 mg-vitamin 1 tab PO DAILY 06/02/22 12/06/23 D3 10 mcg (400 unit) tablet (Calcium 600 + D(3)) fluticasone propionate 50 1 spray intranasal DAILY PRN 06/02/22 12/06/23 mcg/actuation nasal Allergy Symptoms spray,suspension magnesium oxide 400 mg PO DAILY 06/02/22 12/06/23 milk thistle 500 mg capsule 500 mg PO .THREE TIMES A WEEK 06/02/22 12/06/23 montelukast 10 mg tablet 10 mg PO QPM 06/02/22 12/06/23 (Singulair) omeprazole magnesium 20 mg 20 mg PO DAILY PRN Heartburn 06/02/22 12/06/23 tablet,delayed release (Prilosec OTC) cetirizine 10 mg tablet 10 mg PO QAM 06/19/23 12/06/23 lisinopril 10 mg tablet 10 mg PO DAILY 08/03/23 12/06/23 amlodipine 10 mg tablet 10 mg PO DAILY 12/06/23 12/06/23 spironolactone 25 mg tablet 25 mg PO BID 12/06/23 12/06/23 Previous Rx's Medication Instructions Recorded prednisone 20 mg tablet See Rx Instructions PO .COMPLEX 05/17/23 PRN joint pain flare #30 tabs leflunomide 20 mg tablet 20 mg PO DAILY #30 tabs 05/18/23 meclizine 25 mg tablet 12.5 mg (1/2 x 25 mg) PO TID PRN 06/20/23 dizziness #10 tabs estradiol 0.01% (0.1 mg/gram) See Rx Instructions vaginal 08/03/23 vaginal cream (Estrace) .COMPLEX #42.5 grams Allergies Allergy/AdvReac Type Severity Reaction Status Date / Time gabapentin Allergy Unknown Unknown Verified 12/06/23 08:13 Review of Systems General: Reports: 10 or more systems reviewed and unremarkable except in HPI and below Const: Reports: other (Fall/head injury); Denies: fever(s), chills or fatigue Eyes: Denies: change in vision or blurry vision ENMT: Denies: throat pain, ear or mastoid pain or nasal discharge Card: Denies: chest pain, palpitations, swelling of feet/ankles or lighthea dedness Resp: Denies: dyspnea, productive cough or wheezing GI: Reports: nausea; Denies: abdominal pain, vomiting, diarrhea or constipation : Denies: flank pain, difficulty voiding, dysuria or urinary frequency Musc: Reports: joint pain (Right knee); Denies: neck pain or back pain Skin/Breast: Reports: new lesions (Abrasion); Denies: rash Neuro: Denies: headache(s), numbness in extremities or weakness in extremities PFSH ED PFSH: Medical History Osteoarthritis of hands, bilateral Immunization counseling High risk medication use Inflammatory arthritis Osteoarthritis Peripheral neuropathy DDD (degenerative disc disease) Chronic GERD Fibromyalgia syndrome [id number] deficiency Pessary maintenance Uterovaginal prolapse, incomplete Uterus comes to the opening of the vaginal introitus with Valsalva Cystocele, midline Patient with third-degree cystocele with Valsalva. 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 Denies family history of Stroke Physical Exam Const: COMMON NORMALS: no acute distress, patient oriented x3 and no limitations GENERAL APPEARANCE: cooperative, comfortable and well developed ORIENTATION/CONSCIOUSNESS: Yes awake, Yes oriented to person, Yes oriented to place and Yes oriented to time HENMT: COMMON NORMALS: hearing grossly normal bilaterally and Normal external nose present HEAD & SCALP: abrasion left frontal and hematoma left frontal ; no Sorensen's sign, no laceration and no raccoon eyes FACE & SINUS: face symmetric NOSE: Normal external nose present THROAT: posterior oropharynx normal Eye: COMMON NORMALS: Equal, round and reactive pupils present, EOMs intact bilaterally and conjunctivae normal CONJUNCTIVA: Yes conjunctivae normal PUPIL: Yes Equal, round and reactive pupils present Neck/C-Spine: COMMON NORMALS: full ROM, supple and no JVD CERVICAL SPINE: Yes cervical ROM normal Chest: COMMONS NORMALS: normal inspection of the chest and normal palpation of entire chest wall Resp: COMMON NORMALS: normal respiratory effort, No retractions, No use of accessory muscles and clear to auscultation bilaterally AUSCULTATION: clear to auscultation bilaterally Cardio: COMMON NORMALS: no JVD, regular rate, regular rhythm, No clicks present (Cardio), No murmurs present (Cardio) and No rub (Cardio) RATE: regular rate RHYTHM: regular rhythm GI: COMMON NORMALS: Normal to inspection, nondistended, normoactive bowel sounds present, Soft to palpation and non-tender AUSCULTATION: Yes normoactive bowel sounds PALPATION: Yes Soft to palpation RECTAL EXAM: deferred Back/Pelvis: COMMON NORMALS: thoracic and lumbar spine normal to inspection, no thoracic nor lumbar tenderness and thoraco-lumbar ROM normal Extremity: COMMON NORMALS: full ROM and capillary refill normal NARRATIVE EXTREMITY EXAM: Tenderness to palpation of the right knee joint with overlying abrasion noted. Does have full range of motion with flexion and extension, though does note pain with this. No appreciable joint effusion at this time. No joint laxity. All other extremities palpated and normal to examination. Neuro: COMMON NORMALS: patient oriented x3, CN's II-XII intact bilaterally, moves all extremities, no focal motor deficits and no sensory deficits noted SENSORIUM/ORIENTATION: Yes oriented to person, Yes oriented to place and Yes oriented to time Psych: COMMON NORMALS: mental status grossly normal and Normal thought process present THOUGHT PROCESS: Normal thought process present Skin: COMMON NORMALS: no rashes or lesions noted GENERAL SKIN EXAM: no rashes or lesions noted Course Vital Signs: Vital signs: Vital Signs Temperature 97.9 F 12/04/23 18:45 Pulse Rate 96 12/04/23 20:20 Respiratory Rate 16 12/04/23 20:20 Blood Pressure 138/70 12/04/23 20:20 Pulse Oximetry 96 12/04/23 20:20 Oxygen Delivery Me thod Room Air 12/04/23 18:50 MDM - Fall Medical Decision Making Patient presented after falling prior to arrival, hit her head, however no loss of consciousness or other concerning historical factors. This was simply a trip and fall no symptoms preceding. Her vitals were stable on arrival. Neurologically she was intact, there was a hematoma to her left frontal scalp that had a overlying abrasion but no repairable injury. She was also reporting some right knee pain as she did land on her right knee, history of osteoarthritis in this knee. X-ray of the right knee did not demonstrate any acute findings. In addition her head and neck CT were normal with no acute fractures or subluxations. She refused Ona, elected for ibuprofen for pain relief and was given Zofran for some nausea. We will treat at home with RICE therapy for her right knee, and she will also apply ice to her hematoma and avoid reinjury at all cost. Strict return precautions are given, and she agrees with discharge home at this time. Lab Data Radiology Impressions Cervical Spine CT 12/04/23 19:11 IMPRESSION: No acute fractures or traumatic subluxations. Moderate spondylosis as described above. Head CT 12/04/23 19:11 IMPRESSION: No acute intracranial findings. Small hematoma overlying the left frontal bone. No underlying calvarial fracture. Knee X-Ray 12/04/23 19:11 IMPRESSION: Advanced osteoarthritis noted with loss of joint space, marginal spurs. All radiology interpretation(s) finalized by discharge Discharge Plan Discharge Patient Disposition: Home Clinical Impression: Fall Qualifiers: Encounter type: initial encounter Qualified Code(s): W19.XXXA - Unspecified fall, initial encounter Hematoma of frontal scalp Qualifiers: Encounter type: initial encounter Qualified Code(s): S00.03XA - Contusion of scalp, initial encounter Contusion of knee, right Qualifiers: Encounter type: initial encounter Qualified Code(s): S80.01XA - Contusion of right knee, initial encounter Condition: Stable Prescriptions: No Action levothyroxine 25 mcg tablet 25 mcg PO QAM duloxetine [Cymbalta] 60 mg capsule,delayed release(DR/EC) 60 mg PO QAM prednisone 20 mg tablet See Rx Instructions PO .COMPLEX PRN (Reason: joint pain flare) Qty: 30 1RF Rx Instructions: take 2 tab daily for 7 days as needed for arthritis flare PO PRN; lisinopril 10 mg tablet 10 mg PO DAILY estradiol [Estrace] 0.01 % (0.1 mg/gram) cream See Rx Instructions VAGINAL .COMPLEX Qty: 42.5 3RF Rx Instructions: 1 gram vaginally three times per week spironolactone 25 mg tablet 25 mg PO BID amlodipine 10 mg tablet 10 mg PO DAILY leflunomide 20 mg tablet 20 mg PO DAILY Qty: 30 3RF cetirizine 10 mg tablet 10 mg PO QAM meclizine 25 mg tablet 12.5 mg PO TID PRN (Reason: dizziness) Qty: 10 0RF milk thistle 500 mg Capsule 500 mg PO .THREE TIMES A WEEK Hold Instructions: see pcp montelukast [Singulair] 10 mg Tablet 10 mg PO QPM fluticasone propionate 50 mcg/actuation [place],Suspension 1 spray INTRANASAL DAILY PRN (Reason: Allergy Symptoms) Rx Instructions: administer into each nostril omeprazole magnesium [Prilosec OTC] 20 mg Tablet,Delayed Release (Dr/Ec) 20 mg PO DAILY PRN (Reason: Heartburn) calcium carbonate-vitamin D3 [Calcium 600 + D(3)] 600 mg-10 mcg (400 unit) Tablet 1 tab PO DAILY magnesium oxide 400 mg magnesium Tablet 400 mg PO DAILY Beet Root Powder See Rx Instructions .ROUTE .COMPLEX Rx Instructions: takes as needed Cayenne Pepper Capsule 225 mg PO .TWICE A WEEK Discharge Orders: Discharge ED (Routine); Ordered 12/04/23 Ordered By: Panchito Miller Referrals: Jaclyn Holloway PA [Primary Care Provider] - Discharge Diet: Usual diet Discharge Activity: Increase activity as tolerated Patient Instructions: Contusion in Adults (ED), Hematoma (ED) Activity Restrictions/Additional Instructions: Ice to the hematoma. Tylenol and ibuprofen at home for pain relief. Gentle range of motion exercises with your knee and ice to this area as well. Please follow-up with your primary care later this week for reevaluation. Return with any new or worsening symptoms. 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 [employer] Documented by User: Roger [email or web address] DO 12/07/23 00:37 HPI - Fall General: Chief Complaint: Fall Stated Complaint: head lac Time Seen by Provider: 12/04/23 18:50 Related Data Home Medications Medication Instructions Recorded Confirmed duloxetine 60 mg capsule,delayed 60 mg PO QAM 04/29/19 12/06/23 release (Cymbalta) levothyroxine 25 mcg tablet 25 mcg PO QAM 11/20/19 12/06/23 Beet Root Powder See Rx Instructions .Route .COMPLEX 06/02/22 12/06/23 Cayenne Pepper Capsule 225 mg PO .TWICE A WEEK 06/02/22 12/06/23 calcium carbonate 600 mg-vitamin 1 tab PO DAILY 06/02/22 12/06/23 D3 10 mcg (400 unit) tablet (Calcium 600 + D(3)) fluticasone propionate 50 1 spray intranasal DAILY PRN 06/02/22 12/06/23 mcg/actuation nasal Allergy Symptoms spray,suspension magnesium oxide 400 mg PO DAILY 06/02/22 12/06/23 milk thistle 500 mg capsule 500 mg PO .THREE TIMES A WEEK 06/02/22 12/06/23 montelukast 10 mg tablet 10 mg PO QPM 06/02/22 12/06/23 (Singulair) omeprazole magnesium 20 mg 20 mg PO DAILY PRN Heartburn 06/02/22 12/06/23 tablet,delayed release (Prilosec OTC) cetirizine 10 mg tablet 10 mg PO QAM 06/19/23 12/06/23 lisinopril 10 mg tablet 10 mg PO DAILY 08/03/23 12/06/23 amlodipine 10 mg tablet 10 mg PO DAILY 12/06/23 12/06/23 spironolactone 25 mg tablet 25 mg PO BID 12/06/23 12/06/23 Previous Rx's Medication Instructions Recorded prednisone 20 mg tablet See Rx Instructions PO .COMPLEX 05/17/23 PRN joint pain flare #30 tabs leflunomide 20 mg tablet 20 mg PO DAILY #30 tabs 05/18/23 meclizine 25 mg tablet 12.5 mg (1/2 x 25 mg) PO TID PRN 06/20/23 dizziness #10 tabs estradiol 0.01% (0.1 mg/gram) See Rx Instructions vaginal 08/03/23 vaginal cream (Estrace) .COMPLEX #42.5 grams Allergies Allergy/AdvReac Type Severity Reaction Status Date / Time gabapentin Allergy Unknown Unknown Verified 12/06/23 08:13 PFSH ED PFS: Medical History Osteoarthritis of hands, bilateral Immunization counseling High risk medication use Inflammatory arthritis Osteoarthritis Peripheral neuropathy DDD (degenerative disc disease) Chronic GERD Fibromyalgia syndrome [id number] deficiency Pessary maintenance Uterovaginal prolapse, incomplete Uterus comes to the opening of the vaginal introitus with Valsalva Cystocele, midline Patient with third-degree cystocele with Valsalva. 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 Denies family history of Stroke Course Vital Signs: Vital signs: Vital Signs Temperature 97.9 F 12/04/23 18:45 Pulse Rate 96 12/04/23 20:20 Respiratory Rate 16 12/04/23 20:20 Blood Pressure 138/70 12/04/23 20:20 Pulse Oximetry 96 12/04/23 20:20 Oxygen Delivery Me thod Room Air 12/04/23 18:50 MDM - Fall Medical Decision Making Patient presented after falling prior to arrival, hit her head, however no loss of consciousness or other concerning historical factors. This was simply a trip and fall no symptoms preceding. Her vitals were stable on arrival. Neurologically she was intact, there was a hematoma to her left frontal scalp that had a overlying abrasion but no repairable injury. She was also reporting some right knee pain as she did land on her right knee, history of osteoarthritis in this knee. X-ray of the right knee did not demonstrate any acute findings. In addition her head and neck CT were normal with no acute fractures or subluxations. She refused Ona, elected for ibuprofen for pain relief and was given Zofran for some nausea. We will treat at home with RICE therapy for her right knee, and she will also apply ice to her hematoma and avoid reinjury at all cost. Strict return precautions are given, and she agrees with discharge home at this time. Chart reviewed Lab Data Radiology Impressions Cervical Spine CT 12/04/23 19:11 IMPRESSION: No acute fractures or traumatic subluxations. Moderate spondylosis as described above. Head CT 12/04/23 19:11 IMPRESSION: No acute intracranial findings. Small hematoma overlying the left frontal bone. No underlying calvarial fracture. Knee X-Ray 12/04/23 19:11 IMPRESSION: Advanced osteoarthritis noted with loss of joint space, marginal spurs. Discharge Plan Discharge Patient Disposition: Home Clinical Impression: Fall Qualifiers: Encounter type: initial encounter Qualified Code(s): W19.XXXA - Unspecified fall, initial encounter Hematoma of frontal scalp Qualifiers: Encounter type: initial encounter Qualified Code(s): S00.03XA - Contusion of scalp, initial encounter Contusion of knee, right Qualifiers: Encounter type: initial encounter Qualified Code(s): S80.01XA - Contusion of right knee, initial encounter Condition: Stable Prescriptions: No Action levothyroxine 25 mcg tablet 25 mcg PO QAM duloxetine [Cymbalta] 60 mg capsule,delayed release(DR/EC) 60 mg PO QAM prednisone 20 mg tablet See Rx Instructions PO .COMPLEX PRN (Reason: joint pain flare) Qty: 30 1RF Rx Instructions: take 2 tab daily for 7 days as needed for arthritis flare PO PRN; lisinopril 10 mg tablet 10 mg PO DAILY estradiol [Estrace] 0.01 % (0.1 mg/gram) cream See Rx Instructions VAGINAL .COMPLEX Qty: 42.5 3RF Rx Instructions: 1 gram vaginally three times per week spironolactone 25 mg tablet 25 mg PO BID amlodipine 10 mg tablet 10 mg PO DAILY leflunomide 20 mg tablet 20 mg PO DAILY Qty: 30 3RF cetirizine 10 mg tablet 10 mg PO QAM meclizine 25 mg tablet 12.5 mg PO TID PRN (Reason: dizziness) Qty: 10 0RF milk thistle 500 mg Capsule 500 mg PO .THREE TIMES A WEEK Hold Instructions: see pcp montelukast [Singulair] 10 mg Tablet 10 mg PO QPM fluticasone propionate 50 mcg/actuation [place],Suspension 1 spray INTRANASAL DAILY PRN (Reason: Allergy Symptoms) Rx Instructions: administer into each nostril omeprazole magnesium [Prilosec OTC] 20 mg Tablet,Delayed Release (Dr/Ec) 20 mg PO DAILY PRN (Reason: Heartburn) calcium carbonate-vitamin D3 [Calcium 600 + D(3)] 600 mg-10 mcg (400 unit) Tablet 1 tab PO DAILY magnesium oxide 400 mg magnesium Tablet 400 mg PO DAILY Beet Root Powder See Rx Instructions .ROUTE .COMPLEX Rx Instructions: takes as needed Cayenne Pepper Capsule 225 mg PO .TWICE A WEEK Discharge Orders: Discharge ED (Routine); Ordered 12/04/23 Ordered By: Panchito Miller Referrals: Jaclyn Holloway PA [Primary Care Provider] - Discharge Diet: Usual diet Discharge Activity: Increase activity as tolerated Patient Instructions: Contusion in Adults (ED), Hematoma (ED) Activity Restrictions/Additional Instructions: Ice to the hematoma. Tylenol and ibuprofen at home for pain relief. Gentle range of motion exercises with your knee and ice to this area as well. Please follow-up with your primary care later this week for reevaluation. Return with any new or worsening symptoms. 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
[2023-12-04] MEDS: ondansetron 4 MG Tablet PO (19:50)
--- NOTE | 2023-12-04 19:52 | PC.NURSE ---
Patient refused [place] at this time, stating that she never takes pain medication and requested for ibuprofen and a cracker instead.
[2023-12-04] MEDS: ibuprofen 800 mg tablet PO (20:19)
[2023-12-04 20:20] VITALS: BP 138/70; PULSE 96; RESP 16; O2SAT 96
== END 2023-12-04 20:15 | disposition home or self-care (01) ==
PROVIDERS: Emergency Provider Physician Assistant; PCP Physician Assistant
DX: S00.03XA Contusion of scalp, initial encounter (principal); S80.01XA Contusion of right knee, initial encounter; W01.0XXA Fall on same level from slipping, tripping and stumbling without subsequent striking against object, initial encounter
CPT/HCPCS: 70450; 72125; 73562; 99284; Q0162

== ENCOUNTER → 2023-12-26 10:03 | Outpatient (BNVA) | payer MEDICARE, OTHER, SELFPAY | PROVIDERS: PCP Physician Assistant; Referring Provider Physician Assistant; Visit Provider Internal Medicine | DX: Z79.899 Other long term (current) drug therapy (principal); M81.0 Age-related osteoporosis without current pathological fracture | CPT/HCPCS: 36415; 80053; 82306; 82310; 83970; 84439; 84443 ==

== ENCOUNTER 2024-06-11 10:16 | Outpatient (RCR) | payer MEDICARE, OTHER, SELFPAY | END 2024-07-08 23:59 | disposition home or self-care (01) | LOC: CR 10:16 | PROVIDERS: PCP Physician Assistant; Visit Provider Physician Assistant | DX: I25.10 Atherosclerotic heart disease of native coronary artery without angina pectoris (principal) | CPT/HCPCS: 93798 ==

== ENCOUNTER → 2024-06-26 09:02 | Outpatient (BNVA) | payer MEDICARE, OTHER, SELFPAY | PROVIDERS: PCP Physician Assistant; Visit Provider Internal Medicine Rheumatology | DX: Z79.899 Other long term (current) drug therapy (principal); M19.90 Unspecified osteoarthritis, unspecified site; Z71.85 Encounter for immunization safety counseling; M19.041 Primary osteoarthritis, right hand; M19.042 Primary osteoarthritis, left hand | CPT/HCPCS: 36415; 80076; 82565; 85025; 85651; 86140; 99214 ==

== ENCOUNTER 2024-07-09 12:20 | Outpatient (RCR) | payer MEDICARE, OTHER, SELFPAY | END 2024-08-07 23:59 | disposition home or self-care (01) | LOC: CR 12:20 | PROVIDERS: PCP Physician Assistant; Visit Provider Physician Assistant | DX: I25.10 Atherosclerotic heart disease of native coronary artery without angina pectoris (principal) | CPT/HCPCS: 93798 ==

== ENCOUNTER 2024-07-29 07:38 | Outpatient (CLI) | payer MEDICARE, OTHER, SELFPAY ==
--- NOTE | 2024-07-29 07:43 | MR_ITS ---
WS: [id number] MRI CERVICAL SPINE NONCONTRAST TECHNIQUE: Sagittal T1, T2 and STIR imaging. Axial T2, gradient, and fiesta imaging. CLINICAL INFORMATION: SPINAL STENOSIS CERVICAL REGION COMPARISON: MRI 2021 FINDINGS: Straightening of the normal cervical lordosis. Slight anterolisthesis C2 on C3. C2-C3: Slight anterolisthesis. Mild LEFT foraminal narrowing. Mild facet arthropathy. C3-C4: Disc osteophyte complex with endplate ridging. Mild bilateral bony foraminal narrowing. Moderate facet arthropathy. C4-C5: Disc osteophyte complex with endplate ridging. Mild central canal stenosis. Mild RIGHT foraminal narrowing. Mild facet arthropathy. C5-C6: Disc osteophyte complex with mild central canal stenosis. Moderate LEFT and mild RIGHT foraminal narrowing. Moderate facet arthropathy. C6-C7: Moderate LEFT bony foraminal narrowing. Spinal canal is patent. C7-T1: Slight anterolisthesis. Spinal canal and foramina are patent. Visualized brain stem structures: Normal. Prevertebral soft tissues: Normal. MR/MR cervical spin wo con* [id number] IMPRESSION: 1. Mild central canal stenosis C4-C5 and C5-C6 similar to previous. 2. Moderate bony foraminal narrowing worse left C5-C6 and left C6-C7. 3. Tiny amount of myelomalacia in the cervical cord at C6
== END 2024-07-29 07:39 | disposition home or self-care (01) ==
LOC: RAD 07:38
PROVIDERS: PCP Physician Assistant; Visit Provider Physician Assistant
DX: M48.02 Spinal stenosis, cervical region (principal); M47.892 Other spondylosis, cervical region; M25.78 Osteophyte, vertebrae
CPT/HCPCS: 72141

== ENCOUNTER 2024-08-08 09:37 | Outpatient (RCR) | payer MEDICARE, OTHER, SELFPAY | END 2024-09-07 23:59 | disposition home or self-care (01) | LOC: CR 09:37 | PROVIDERS: PCP Physician Assistant; Visit Provider Physician Assistant | DX: I25.10 Atherosclerotic heart disease of native coronary artery without angina pectoris (principal) | CPT/HCPCS: 93798 ==

== ENCOUNTER 2024-08-13 09:26 | Outpatient (CLI) | payer MEDICARE, OTHER, SELFPAY ==
[2024-08-13 10:03] LABS: Basophils # 0.1 10^3/uL (0.0-0.1); Basophils % 1.5 %; Eosinophils # 0.1 10^3/uL (0.0-0.8); Eosinophils % 2.7 %; Hematocrit 41.1 % (36-47); Lymphocytes # 2.2 10^3/uL (0.8-4.8); Lymphocytes % 49.3 %; Mean Corpuscular HGB Conc 32.1 g/dL (30-55); Mean Corpuscular Hemoglobin 28.9 pg (27-33); Mean Corpuscular Volume 89.9 fl (85-98); Monocytes # 0.6 10^3/uL (0.2-0.9); Monocytes % 13.9 %; Neutrophils # 1.47 10^3/uL (1.8-7.7); Neutrophils % 32.6 %; Nucleated Red Blood Cells % 0 %; Platelet Count 285 10^3/cmm (157-399); Red Blood Count 4.57 10^6/uL (3.85-5.65); Red Cell Distribution Width 13.2 % (12.1-15.1); White Blood Count 4.52 10^3/uL (3.29-11.43)
[2024-08-13 10:13] LABS: Erythrocyte Sedimentation Rate 5 mm/hr (0-15)
[2024-08-13 10:23] LABS: Alanine Aminotransferase 12 U/L (0-33); Albumin Level 4.3 g/dL (3.5-5.2); Alkaline Phosphatase 57 U/L (35-105); Aspartate Amino Transferase 18 U/L (0-32); Globulin 2.7 g/dL (1.3-4.6); Total Bilirubin 0.6 mg/dL (0.15-1.2)
== END 2024-08-13 09:27 | disposition home or self-care (01) ==
PROVIDERS: PCP Physician Assistant; Visit Provider Internal Medicine Rheumatology
DX: Z79.899 Other long term (current) drug therapy (principal)
CPT/HCPCS: 36415; 80076; 82565; 85025; 85651; 86140

== ENCOUNTER 2024-09-08 09:02 | Outpatient (RCR) | payer MEDICARE, OTHER, SELFPAY | END 2024-10-07 23:59 | disposition home or self-care (01) | LOC: CR 09:02 | PROVIDERS: PCP Physician Assistant; Visit Provider Physician Assistant | DX: I25.10 Atherosclerotic heart disease of native coronary artery without angina pectoris (principal) | CPT/HCPCS: 93798 ==

== ENCOUNTER → 2024-10-16 10:27 | Outpatient (BNVA) | payer MEDICARE, OTHER, SELFPAY | PROVIDERS: PCP Physician Assistant; Visit Provider Internal Medicine Rheumatology | DX: M19.90 Unspecified osteoarthritis, unspecified site (principal); Z79.899 Other long term (current) drug therapy; Z71.85 Encounter for immunization safety counseling; M19.041 Primary osteoarthritis, right hand; M19.042 Primary osteoarthritis, left hand | CPT/HCPCS: 99214 ==

== ENCOUNTER 2024-12-24 13:37 | Outpatient (CLI) | payer MEDICARE, OTHER, SELFPAY ==
--- NOTE | 2024-12-24 13:45 | XR_ITS ---
WS: [id number] SCREENING DEXA SCAN [employer] CLINICAL INFORMATION: OSTEOPENIA OF MULTIPLE SITES COMPARISON: 2022 FINDINGS: The L1-L4 bone mineral density measures 0.952 g/cm2. This corresponds to a T score score of -1.9 and Z score of -0.2. Left femoral neck bone mineral density measures 0.838 g/cm2. This corresponds to a T score of -1.3 and Z score of 0.6. Right femoral neck bone mineral density measures 0.823 g/cm2. This corresponds to a T score -1.5of and Z score of 0.5. Mean femoral neck bone mineral density measures 0.831 g/cm2. This corresponds to a T score of -1.4 and Z score of 0.6. XR/XR DEXA axial skeleton* [id number] IMPRESSION: Osteopenia lumbar spine and femoral necks. Patient's FRAX calculated 10 year probability for major osteoporotic fracture i s 18.6 % and osteoporotic hip fracture is 5.6 %. Bone density lumbar spine increased 3.3% Bone density femoral necks increased 0.5%
== END 2024-12-24 13:38 | disposition home or self-care (01) ==
LOC: RAD 13:39
PROVIDERS: PCP Physician Assistant; Visit Provider Physician Assistant
DX: M85.89 Other specified disorders of bone density and structure, multiple sites (principal)
CPT/HCPCS: 77080

== ENCOUNTER → 2025-03-05 14:07 | Outpatient (BNVA) | payer MEDICARE, OTHER, SELFPAY | PROVIDERS: PCP Physician Assistant; Visit Provider Internal Medicine Rheumatology | DX: M05.9 Rheumatoid arthritis with rheumatoid factor, unspecified (principal); Z79.899 Other long term (current) drug therapy; Z71.85 Encounter for immunization safety counseling; M19.041 Primary osteoarthritis, right hand; M19.042 Primary osteoarthritis, left hand; I10 Essential (primary) hypertension | CPT/HCPCS: 36415; 80076; 82565; 85025; 85651; 86140; 99214 ==